=== PATIENT | female | born 1980 | race Caucasian/White ===

== ENCOUNTER 2018-03-28 12:05 | Emergency (ER) | payer OTHER ==
[2018-03-28] MEDS ORDERED: NA CHLORIDE 0.9% 1,000 ML ONE (13:57)
[2018-03-28] MEDS ORDERED: FAMOTIDINE 20 MG/2 ML VIAL IV ONE (13:57)
[2018-03-28 14:20] LABS: Absolute Lymphocytes (CBC) 2.2 K/uL (0.7-4.9); Absolute Monocytes 0.9 K/uL (0.1-1.3); Basophils % 0.7 % (0-1.3); Eosinophils % 1.5 % (0-4.4); Hematocrit 44.4 % (36.0-45.0); Lymphocytes % 17.8 % (15.3-44.8); MCH 28.4 pg (27.0-35.0); MCV 83.1 fL (80-100); MPV 9.8 fL (7.6-11.3); Monocytes % 7.3 % (3.3-12.3); RBC Red Blood Cell Count 5.34 M/uL (3.86-4.86)
[2018-03-28 14:25] LABS: Protime INR 0.9
[2018-03-28 14:30] LABS: ALT/SGPT 23 U/L (12-78); AST/SGOT 17 U/L (15-37); Albumin 3.7 g/dL (3.4-5.0); Alkaline Phosphatase 82 U/L (45-117); BUN Blood Urea Nitrogen 7 mg/dL (7-18); Bicarbonate 25 mmol/L (21-32); Bilirubin Direct 0.1 mg/dL (0-0.2); Bilirubin Total 0.4 mg/dL (0.2-1.0); CKMB Creatine Kinase MB < 1.0 ng/mL (0.3-3.6); Creatine Phosphokinase 56 U/L (26-192); Glucose Level 279 mg/dL (74-106); Lipase 156 U/L (73-393); Magnesium 2.2 mg/dL (1.8-2.4); NT PRO-BNP 150 pg/mL (<125); Protein, Total 7.7 g/dL (6.4-8.2); Sodium Level 138 mmol/L (136-145)
--- NOTE | 2018-03-28 14:44 | RAD REPORT ---
EXAM DESCRIPTION: RAD - Chest Single View - 03/28/2018 2:35 pm CLINICAL HISTORY: ABDOMINAL DISTENTION Chest pain. COMPARISON: No comparisons FINDINGS: Portable technique limits examination quality. The lungs are grossly clear. The heart is normal in size. No displaced fractures. IMPRESSION: No acute intrathoracic process suspected.
--- NOTE | 2018-03-28 15:06 | RAD REPORT ---
EXAM DESCRIPTION: US - Abdomen Exam Limited - 03/28/2018 2:55 pm CLINICAL HISTORY: ABD PAIN COMPARISON: No comparisons FINDINGS: The gallbladder demonstrates no gallstones. No pericholecystic fluid or gallbladder wall t hickening. The common bile duct is normal measuring 4 mm. The liver demonstrates no findings of intrahepatic biliary dilatation. IMPRESSION: Unremarkable examination.
[2018-03-28 15:17] LABS: Urine Blood NEGATIVE (NEG); Urine Glucose 2+ (NEG); Urine Protein TRACE (NEG); Urine Specific Gravity >1.030 (1.005-1.030)
--- NOTE | 2018-03-28 15:42 | RAD REPORT ---
EXAM DESCRIPTION: CTAbdomen Pelvis W Contrast - 03/28/2018 3:31 pm CLINICAL HISTORY: Abdominal pain. ABD PAIN COMPARISON: No comparisons TECHNIQUE: Biphasic CT imaging of the abdomen and pelvis was performed with 100 ml non-ionic IV cont rast. All CT scans are performed using dose optimization technique as appropriate and may include automated exposure control or mA/KV adjustment according to patient size. FINDINGS: The lung bases are clear.Gastric banding is expected location at the esophagogastric junct ion. Mild diffuse fatty liver. No focal liver lesion or biliary dilatation. The spleen, pancreas, adrenal glands and kidneys are within normal limits. No bowel obstruction, free air, free fluid or abscess. Scattered colonic diverticulosis. The appendix is normal. No evidence of significant lymphadenopathy. No suspicious bony findings. IMPRESSION: No acute intra-abdominal or pelvic finding.
--- NOTE | 2018-03-28 15:48 | EDPHYS ---
Physician Documentation [facility] Name: Elidia Sandoval Age: 37 yrs Sex: Female : 1980 Arrival Date: 03/28/2018 Time: 12:09 Bed 16 Private MD: out of town, doctor ED Physician Davian Chapman HPI: 03/28 13:49 This 37 yrs old Female presents to ER via Ambulatory with complaints of vu Abdominal Pain. 13:49 The patient presents with abdominal pain in the epigastric area, in the upper abdomen. vu Onset: The symptoms/episode began/occurred just prior to arrival. The symptoms radiate to back. Associated signs and symptoms: Pertinent positives: nausea and vomiting, diarrhea. The symptoms are described as constant, crampy, sharp. Modifying factors: The symptoms are alleviated by nothing, the symptoms are aggravated by movement. Severity of pain: At its worst the pain was moderate in the emergency department the pain has improved mildly. The patient has not experienced similar symptoms in the past. 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 - Social history:: Smoking status: Patient/guardian denies using tobacco, Patient/guardian denies using alcohol, street drugs. - Ebola Screening: : Patient negative for fever greater than or equal to 101.5 degrees Fahrenheit, and additional compatible Ebola Virus Disease symptoms Patient denies exposure to infectious person Patient denies travel to an Ebola-affected area in the 21 days before illness onset No symptoms or risks identified at this time. - Family history:: not pertinent. ROS: 13:49 Constitutional: Negative for fever, chills, and weight loss, Eyes: Negative for injury, vu pain, redness, and discharge, ENT: Negative for injury, pain, and discharge, Neck: Negative for injury, pain, and swelling, Cardiovascular: Negative for chest pain, palpitations, and edema, Respiratory: Negative for shortness of breath, cough, wheezing, and pleuritic chest pain, Back: Negative for injury and pain, : Negative for injury, bleeding, discharge, and swelling, MS/Extremity: Negative for injury and deformity, Skin: Negative for injury, rash, and discoloration, Neuro: Negative for headache, weakness, numbness, tingling, and seizure, Psych: Negative for depression, anxiety, suicide ideation, homicidal ideation, and hallucinations, Allergy/Immunology: Negative for hives, rash, and allergies, Endocrine: Negative for neck swelling, polydipsia, polyuria, polyphagia, and marked weight changes, Hematologic/Lymphatic: Negative for swollen nodes, abnormal bleeding, and unusual bruising. 13:49 Abdomen/GI: Positive for abdominal pain, nausea and vomiting, diarrhea. Exam: 13:49 Constitutional: This is a well developed, well nourished patient who is awake, alert, vu and in no acute distress. Head/Face: Normocephalic, atraumatic. Eyes: Pupils equal round and reactive to light, extra-ocular motions intact. Lids and lashes normal. Conjunctiva and sclera are non-icteric and not injected. Cornea within normal limits. Periorbital areas with no swelling, redness, or edema. ENT: Nares patent. No nasal discharge, no septal abnormalities noted. Tympanic membranes are normal and external auditory canals are clear. Oropharynx with no redness, swelling, or masses, exudates, or evidence of obstruction, uvula midline. Mucous membranes moist. Neck: Trachea midline, no thyromegaly or masses palpated, and no cervical lymphadenopathy. Supple, full range of motion without nuchal rigidity, or vertebral point tenderness. No Meningismus. Chest/axilla: Normal chest wall appearance and motion. Nontender with no deformity. No lesions are appreciated. Cardiovascular: Regular rate and rhythm with a normal S1 and S2. No gallops, murmurs, or rubs. Normal PMI, no JVD. No pulse deficits. Respiratory: Lungs have equal breath sounds bilaterally, clear to auscultation and percussion. No rales, rhonchi or wheezes noted. No increased work of breathing, no retractions or nasal flaring. Back: No spinal tenderness. No costovertebral tenderness. Full range of motion. Skin: Warm, dry with normal turgor. Normal color with no rashes, no lesions, and no evidence of cellulitis. MS/ Extremity: Pulses equal, no cyanosis. Neurovascular intact. Full, normal range of motion. Neuro: Awake and alert, GCS 15, oriented to person, place, time, and situation. Cranial nerves II-XII grossly intact. Motor strength 5/5 in all extremities. Sensory grossly intact. Cerebellar exam normal. Normal gait. Psych: Awake, alert, with orientation to person, place and time. Behavior, mood, and affect are within normal limits. 13:49 Abdomen/GI: Inspection: distension, Bowel sounds: normal, Palpation: mild abdominal tenderness, moderate abdominal tenderness, in the epigastric area, right upper quadrant and left upper quadrant, Liver: no appreciated palpable abnormalities, Hernia: not appreciated. Vital Signs: 12:19 BP 132 / 88; Pulse 92; Resp 20; Temp 98.6(O); Pulse Ox 96% on R/A; Weight 107.05 kg; ch Height 5 ft. 8 in. (172.72 cm); Pain 9/10; 14:20 BP 119 / 88; Pulse 92; Resp 17; Pulse Ox 98% on R/A; 5 15:02 BP 127 / 79; Pulse 90; Resp 18; Pulse Ox 100% on R/A; hj 16:03 BP 128 / 80; Pulse 89; Resp 18; Pulse Ox 97% on R/A; hj 12:19 Body Mass Index 35.88 (107.05 kg, 172.72 cm) MDM: 12:56 Patient medically screened. [facility] 13:51 Data reviewed: vital signs, nurses notes, lab test result(s), EKG, radiologic studies, [facility] CT scan, plain films, ultrasound. 03/28 13:49 Order name: Basic Metabolic Panel; Complete Time: 14:51 [facility] 03/28 13:49 Order name: CBC with Diff; Complete Time: 14:51 [facility] 03/28 13:49 Order name: Ckmb; Complete Time: 14:51 [facility] 03/28 13:49 Order name: CPK; Complete Time: 14:51 [facility] 03/28 13:49 Order name: LFT's; Complete Time: 14:51 [facility] 03/28 13:49 Order name: Magnesium; Complete Time: 14:51 [facility] 03/28 13:49 Order name: NT PRO-BNP; Complete Time: 14:51 [facility] 03/28 13:49 Order name: PT-INR; Complete Time: 14:51 [facility] 03/28 13:49 Order name: Ptt, Activated; Complete Time: 14:51 [facility] 03/28 13:49 Order name: Troponin (emerg Dept Use Only); Complete Time: 14:51 [facility] 03/28 13:49 Order name: XRAY Chest (1 view); Complete Time: 14:51 [facility] 03/28 13:49 Order name: Lipase; Complete Time: 14:51 [facility] 03/28 15:09 Order name: Urine Dipstick--Ancillary (enter results); Complete Time: 15:21 03/28 15:09 Order name: Urine --Ancillary (enter results); Complete Time: 15:21 03/28 13:49 Order name: Urine Test (obtain specimen); Complete Time: 14:10 [facility] 03/28 13:49 Order name: EKG; Complete Time: 13:49 [facility] 03/28 13:49 Order name: Cardiac monitoring; Complete Time: 13:50 [facility] 03/28 13:49 Order name: EKG - Nurse/Tech; Complete Time: 14:10 [facility] 03/28 13:49 Order name: IV Saline Lock; Complete Time: 13:50 [facility] 03/28 13:49 Order name: Labs collected and sent; Complete Time: 14:10 [facility] 03/28 13:49 Order name: O2 Per Protocol; Complete Time: 13:50 [facility] 03/28 13:49 Order name: O2 Sat Monitoring; Complete Time: 13:50 [facility] 03/28 13:49 Order name: Urine Dipstick-Ancillary (obtain specimen); Complete Time: 14:10 [facility] 03/28 13:49 Order name: CT Abd/Pelvis - W/Contrast: lap band prot; Complete Time: 15:47 [facility] 03/28 13:49 Order name: US Abdomen Limited; Complete Time: 15:21 [facility] Administered Medications: 13:49 Drug: Pepcid 20 mg Route: IVP; Site: left forearm; hj 15:43 Follow up: Response: No adverse reaction 13:49 Drug: NS 0.9% 1000 ml Route: IV; Rate: 1 bolus; Site: left forearm; hj 15:43 Follow up: IV Status: Completed infusion hj Disposition: 03/28/18 15:47 Discharged to Home. Impression: Abdominal tenderness - hx of lap band, Vomiting, Diarrhea, unspecified, Obesity, unspecified, Hyperglycemia, unspecified. - Condition is Stable. - Discharge Instructions: Abdominal Pain, Adult, Food Choices to Help Relieve Diarrhea, Adult, Type 2 Diabetes Mellitus, Diagnosis, Adult, Diarrhea, Adult, Hyperglycemia, Nausea and Vomiting, Adult, Nausea and Vomiting, Adult, Hekq-qx-Exwf, Abdominal Pain, Adult, Wdei-ox-Jwli, Blood Glucose Monitoring, Adult, Diarrhea, Adult, Pgmh-bi-Ilox, Type 2 Diabetes Mellitus, Diagnosis, Adult, Bjwe-bl-Dwlq, Type 2 Diabetes Mellitus, Self Care, Adult, Type 2 Diabetes Mellitus, Self Care, Adult, Ofzm-be-Yknm. - Prescriptions for Pepcid 20 mg Oral Tablet - take 1 tablet by ORAL route every 12 hours for 10 days; 20 tablet. Zofran 4 mg Oral Tablet - take 1 tablet by ORAL route every 12 hours As needed; 20 tablet. - Medication Reconciliation Form, Thank You Letter, Antibiotic Education, Prescription Opioid Use form. - Follow up: Private Physician; When: 2 - 3 days; Reason: Recheck today's complaints, Continuance of care, Re-evaluation by your physician. Follow up: Nirmal Florentino MD; When: 2 - 3 days; Reason: Recheck today's complaints, Re-evaluation by your physician. - Problem is new. - Symptoms have improved. Signatures: Dispatcher [employer] EDCarie Medina, RN RN Davian Ramirez MD MD cha Joaquin, Henry, RN RN Corrections: (The following items were deleted from the chart) 15:48 15:47 03/28/2018 15:47 Discharged to Home. Impression: Abdominal tenderness - hx of lap vu band; Vomiting; Diarrhea, unspecified; Obesity, unspecified; Hyperglycemia, unspecified. Condition is Stable. Discharge Instructions: Abdominal Pain, Adult, Food Choices to Help Relieve Diarrhea, Adult, Diarrhea, Adult, Nausea and Vomiting, Adult, Nausea and Vomiting, Adult, Vxqb-qd-Vzhm, Abdominal Pain, Adult, Ofti-fc-Qcdq, Diarrhea, Adult, Tmnp-qo-Aenl, Type 2 Diabetes Mellitus, Diagnosis, Adult, Hyperglycemia, Blood Glucose Monitoring, Adult, Type 2 Diabetes Mellitus, Diagnosis, Adult, Bsxp-fl-Ppcd, Type 2 Diabetes Mellitus, Self Care, Adult, Type 2 Diabetes Mellitus, Self Care, Adult, Tobx-dj-Dybb. Prescriptions for Pepcid 20 mg Oral Tablet - take 1 tablet by ORAL route every 12 hours for 10 days; 20 tablet. and Forms are Medication Reconciliation Form, Thank You Letter, Antibiotic Education, Prescription Opioid Use. Follow up: Private Physician; When: 2 - 3 days; Reason: Recheck today's complaints, Continuance of care, Re-evaluation by your physician. Problem is new. Symptoms have improved. [facility] 16:04 15:48 03/28/2018 15:47 Discharged to Home. Impression: Abdominal tenderness - hx of lap hj band; Vomiting; Diarrhea, unspecified; Obesity, unspecified; Hyperglycemia, unspecified. Condition is Stable. Discharge Instructions: Abdominal Pain, Adult, Food Choices to Help Relieve Diarrhea, Adult, Diarrhea, Adult, Nausea and Vomiting, Adult, Nausea and Vomiting, Adult, Vuar-lx-Tnmi, Abdominal Pain, Adult, Mmhr-xp-Wapa, Diarrhea, Adult, Lcyz-ac-Lwgw, Type 2 Diabetes Mellitus, Diagnosis, Adult, Hyperglycemia, Blood Glucose Monitoring, Adult, Type 2 Diabetes Mellitus, Diagnosis, Adult, Xbez-al-Jjxw, Type 2 Diabetes Mellitus, Self Care, Adult, Type 2 Diabetes Mellitus, Self Care, Adult, Nqwq-ou-Wibz. Prescriptions for Pepcid 20 mg Oral Tablet - take 1 tablet by ORAL route every 12 hours for 10 days; 20 tablet. and Forms are Medication Reconciliation Form, Thank You Letter, Antibiotic Education, Prescription Opioid Use. Follow up: Private Physician; When: 2 - 3 days; Reason: Recheck today's complaints, Continuance of care, Re-evaluation by your physician. Follow up: Nirmal Florentino; When: 2 - 3 days; Reason: Recheck today's complaints, Re-evaluation by your physician. Problem is new. Symptoms have improved. [facility]
--- NOTE | 2018-03-28 15:48 | ER ---
Nurse's Notes [facility] Name: Elidia Sandoval Age: 37 yrs Sex: Female : 1980 Arrival Date: 03/28/2018 Time: 12:09 Bed 16 Private MD: out of town, doctor Diagnosis: Abdominal tenderness-hx of lap band;Vomiting;Diarrhea, unspecified;Obesity, unspecified;Hyperglycemia, unspecified Presentation: 03/28 12:18 Presenting complaint: Patient states: I have a lap band. at 1030 I abruptly got pain in ch my stomach, upper area first now all over, started dry heaving, and I have had diarrhea since, several times. Transition of care: patient was not received from another setting of care. Onset of symptoms was March 28, 2018 at 10:30. Risk Assessment: Do you want to hurt yourself or someone else? Patient reports no desire to harm self or others. Initial Sepsis Screen: Does the patient meet any 2 criteria? No. Patient's initial sepsis screen is negative. Does the patient have a suspected source of infection? No. Patient's initial sepsis screen is negative. Care prior to arrival: None. 12:18 Method Of Arrival: Ambulatory 12:18 Acuity: FAITH 3 Triage Assessment: 12:19 General: Appears in no apparent distress. comfortable, Behavior is calm, cooperative, ch appropriate for age. Pain: Complains of pain in abdomen. GI: Reports lower abdominal pain, upper abdominal pain. 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 - Social history:: Smoking status: Patient/guardian denies using tobacco, Patient/guardian denies using alcohol, street drugs. - Ebola Screening: : Patient negative for fever greater than or equal to 101.5 degrees Fahrenheit, and additional compatible Ebola Virus Disease symptoms Patient denies exposure to infectious person Patient denies travel to an Ebola-affected area in the 21 days before illness onset No symptoms or risks identified at this time. - Family history:: not pertinent. Screenin:57 Abuse screen: Denies threats or abuse. Denies injuries from another. Nutritional hj screening: No deficits noted. Tuberculosis screening: No symptoms or risk factors identified. Fall Risk None identified. Assessment: 12:57 GI: Bowel sounds present X 4 quads. Abdomen is tender to palpation see triage for hj assessment;. 13:30 Reassessment: Patient and/or family updated on plan of care and expected duration. Pain hj level reassessed. Patient is alert, oriented x 3, equal unlabored respirations, skin warm/dry/pink. awaiting results and POC;. 14:18 Reassessment: finished drinking contrast, vascular technologist informed;. hj 15:00 Reassessment: back from CT;. hj 15:46 Reassessment: Patient and/or family updated on plan of care and expected duration. Pain hj level reassessed. Patient is alert, oriented x 3, equal unlabored respirations, skin warm/dry/pink. awaiting results and POC:. Vital Signs: 12:19 BP 132 / 88; Pulse 92; Resp 20; Temp 98.6(O); Pulse Ox 96% on R/A; Weight 107.05 kg; Height 5 ft. 8 in. (172.72 cm); Pain 9/10; 14:20 BP 119 / 88; Pulse 92; Resp 17; Pulse Ox 98% on R/A; mh5 15:02 BP 127 / 79; Pulse 90; Resp 18; Pulse Ox 100% on R/A; hj 16:03 BP 128 / 80; Pulse 89; Resp 18; Pulse Ox 97% on R/A; hj 12:19 Body Mass Index 35.88 (107.05 kg, 172.72 cm) ED Course: 12:09 Patient arrived in ED. mr 12:09 out of town, doctor is Private Physician. mr 12:18 Triage completed. 12:19 Arm band placed on left wrist. Patient placed in waiting room. 12:56 Davian Chapman MD is Attending Physician. [facility] 12:57 Servando Norwood RN is Primary Nurse. 12:58 Patient has correct armband on for positive identification. Placed in gown. Bed in low hj position. Call light in reach. Side rails up X 1. 14:10 Initial lab(s) drawn, by me, sent to lab. Inserted saline lock: 22 gauge in left hj forearm, using aseptic technique. 14:21 EKG done, by robot technician. reviewed by Davian Chapman MD. sm3 14:33 US Abdomen Limited In Process Unspecified. EDMS 14:34 X-ray completed. Portable x-ray completed in exam room. Patient tolerated procedure bb2 well. 14:34 XRAY Chest (1 view) In Process Unspecified. EDMS 15:[address] via wheelchair. cw1 15:30 CT Abd/Pelvis - W/Contrast: lap band prot In Process Unspecified. EDMS 15:48 Nirmal Florentino MD is Referral Physician. [facility] 16:02 No provider procedures requiring assistance completed. IV discontinued, intact, hj bleeding controlled, No redness/swelling at site. Pressure dressing applied. Administered Medications: 13:49 Drug: Pepcid 20 mg Route: IVP; Site: left forearm; hj 15:43 Follow up: Response: No adverse reaction 13:49 Drug: NS 0.9% 1000 ml Route: IV; Rate: 1 bolus; Site: left forearm; hj 15:43 Follow up: IV Status: Completed infusion hj Outcome: 15:47 Discharge ordered by . [facility] 16:02 Discharged to home ambulatory. 16:02 Condition: stable 16:02 Discharge instructions given to patient, Instructed on discharge instructions, follow up and referral plans. medication usage, Demonstrated understanding of instructions, follow-up care, medications, Prescriptions given X 2. 16:04 Patient left the ED. Signatures: Dispatcher [employer] EDMS Carie Juárez, RN Davian Paula ch, MD MD cha Rivera, Maria mr Gomez, Brigitte cw1 Servando Norwood RN RN hj Martinez, Maria 5 Yaneth Krishnan 2 Vicki Mccloud sm3 Corrections: (The following items were deleted from the chart) 14:57 12:57 GI: Bowel sounds present X 4 quads. Abdomen is tender to palpation [facility]
--- NOTE | 2018-03-29 16:20 | EKG ---
Test Date: 2018-03-28 Test Time: 14:01:06 Ditching Machine Operating Engineer: KAMARI MEASUREMENT RESULTS: Intervals: Rate: 65 MI: 128 QRSD: 90 QT: 414 QTc: 430 Hellier: P: 49 MI: 128 QRS: 34 T: 40 INTERPRETIVE STATEMENTS: Normal sinus rhythm Normal ECG No previous ECG available for comparison Electronically Signed On 03-29-18 16:15:00 CDT by Wilbur Khan
== END 2018-03-28 16:04 | disposition home or self-care (01) ==
LOC: ER 12:05
DX: R11.10 Vomiting, unspecified (principal); R19.7 Diarrhea, unspecified; R73.9 Hyperglycemia, unspecified; E66.9 Obesity, unspecified
CPT/HCPCS: 36415; 71045; 74177; 76705; 80048; 80076; 81003; 81025; 82550; 82553; 83690; 83735; 83880; 84484; 85025; 85610; 85730; 93005; 96361; 96374; 99284; J7030; Q9967

== ENCOUNTER 2018-10-05 14:24 | Emergency (ER) | payer BC, OTHER ==
--- OUTSIDE RECORDS SUMMARY | 2018-10-05 14:26 | XMS REPORT | Continuity of Care Document ---
:1980 Author Organization Interface Problems Problem Status Onset Date Classification Date Comments Source Reported Medications Medication Details Route Status Patient Ordering Order Source Instructions Provider Date Allergies, Adverse Reactions, Alerts Substance Category Reaction Severity Reaction Status Date Comments Source type Reported Immunizations Immunization Date Given Site Status Last Updated Comments Source Results Order Results Value Reference Date Interpretation Comments Source Name Range Vital Signs Vital Sign Value Date Comments Source Encounters Location Location Encounter Encounter Reason Attending ADM DC Status Source Details Type Number For Provider Date Date Visit Outpatient [id number] [facility] [id number] [facility] [place] [facility] [id number] [facility] [id number] [facility] [id number] [facility]03 [facility] [id number] [facility] [id number] [facility] [id number] JOAO 08/31 Active [facility] [place] Procedures Procedure Code Date Perfomer Comments Source
--- NOTE | 2018-10-05 17:22 | EDPHYS ---
Physician Documentation [facility] Name: Elidia Sandoval Age: 38 yrs Sex: Female : 1980 Arrival Date: 10/05/2018 Time: 14:28 Bed 10 Private MD: ED Physician Anil Banks HPI: 10/05 16:37 This 38 yrs old Female presents to ER via Ambulatory with complaints of Hand kav Injury. 16:41 The patient or guardian reports a contusion, pain. The complaints affect the left hand kav diffusely, right hand diffusely. Context: The problem was sustained at a [place]. Onset: The symptoms/episode began/occurred acutely, 2 day(s) ago. Modifying factors: The symptoms are alleviated by nothing, the symptoms are aggravated by movement. Associated signs and symptoms: The patient has no apparent associated signs or symptoms. Severity of symptoms: At their worst the symptoms were moderate, just prior to arrival. The patient has not experienced similar symptoms in the past. The patient has not recently seen a physician. Patient reports that she tripped and fell at the [place] and landed on bilateral outstretched hands. 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 - Social history:: Smoking status: Patient/guardian denies using tobacco. - Ebola Screening: : No symptoms or risks identified at this time. - Family history:: not pertinent. - Hospitalizations: : No recent hospitalization is reported. ROS: 16:43 Constitutional: Negative for fever, chills, and weight loss, Eyes: Negative for injury, kav pain, redness, and discharge, ENT: Negative for injury, pain, and discharge, Neck: Negative for injury, pain, and swelling, Cardiovascular: Negative for chest pain, palpitations, and edema, Respiratory: Negative for shortness of breath, cough, wheezing, and pleuritic chest pain, Abdomen/GI: Negative for abdominal pain, nausea, vomiting, diarrhea, and constipation, Back: Negative for injury and pain, : Negative for injury, bleeding, discharge, and swelling, Skin: Negative for injury, rash, and discoloration, Neuro: Negative for headache, weakness, numbness, tingling, and seizure, Psych: Negative for depression, anxiety, suicide ideation, homicidal ideation, and hallucinations, Allergy/Immunology: Negative for hives, rash, and allergies, Endocrine: Negative for neck swelling, polydipsia, polyuria, polyphagia, and marked weight changes, Hematologic/Lymphatic: Negative for swollen nodes, abnormal bleeding, and unusual bruising. 16:43 MS/extremity: Positive for contusion, pain, of the right hand and left hand. Exam: 16:43 Constitutional: This is a well developed, well nourished patient who is awake, alert, kav and in no acute distress. Head/Face: Normocephalic, atraumatic. Eyes: Pupils equal round and reactive to light, extra-ocular motions intact. Lids and lashes normal. Conjunctiva and sclera are non-icteric and not injected. Cornea within normal limits. Periorbital areas with no swelling, redness, or edema. ENT: Nares patent. No nasal discharge, no septal abnormalities noted. Tympanic membranes are normal and external auditory canals are clear. Oropharynx with no redness, swelling, or masses, exudates, or evidence of obstruction, uvula midline. Mucous membranes moist. Neck: Trachea midline, no thyromegaly or masses palpated, and no cervical lymphadenopathy. Supple, full range of motion without nuchal rigidity, or vertebral point tenderness. No Meningismus. Chest/axilla: Normal chest wall appearance and motion. Nontender with no deformity. No lesions are appreciated. Cardiovascular: Regular rate and rhythm with a normal S1 and S2. No gallops, murmurs, or rubs. Normal PMI, no JVD. No pulse deficits. Respiratory: Lungs have equal breath sounds bilaterally, clear to auscultation and percussion. No rales, rhonchi or wheezes noted. No increased work of breathing, no retractions or nasal flaring. Abdomen/GI: Soft, non-tender, with normal bowel sounds. No distension or tympany. No guarding or rebound. No evidence of tenderness throughout. Back: No spinal tenderness. No costovertebral tenderness. Full range of motion. Skin: Warm, dry with normal turgor. Normal color with no rashes, no lesions, and no evidence of cellulitis. Neuro: Awake and alert, GCS 15, oriented to person, place, time, and situation. Cranial nerves II-XII grossly intact. Motor strength 5/5 in all extremities. Sensory grossly intact. Cerebellar exam normal. Normal gait. Psych: Awake, alert, with orientation to person, place and time. Behavior, mood, and affect are within normal limits. 16:43 Musculoskeletal/extremity: Extremities: noted in the right hand and left hand: contusion, pain, ROM: full active range of motion, in the left hand, Circulation is intact in all extremities. Pulses: are normal with no appreciated deficits, Sensation intact. Compartment Syndrome exam of affected extremity: is normal. no numbness, no tingling, no sensation deficit, no palor, no weak pulses, Joints: All joints appear normal with full range of motion. Tendon exam: specific tendon testing normal through active and passive range of motion Vital Signs: 14:40 BP 144 / 87; Pulse 88; Resp 16; Temp 97.8; Pulse Ox 100% on R/A; Pain 6/10; hb MDM: 16:37 Medical screening is not applicable. kav 16:43 Differential diagnosis: dislocation, closed fracture, contusion. Data reviewed: vital kav signs, nurses notes, radiologic studies, plain films. Counseling: I had a detailed discussion with the patient and/or guardian regarding: the historical points, exam findings, and any diagnostic results supporting the discharge/admit diagnosis, radiology results. 10/05 14:41 Order name: Hand Left 3 View XRAY 10/05 17:17 Interpretation: No acute disease. kav 10/05 14:41 Order name: Hand Right 3 View XRAY 10/05 17:16 Interpretation: No acute disease. kav Administered Medications: No medications were administered Disposition: 10/06 07:00 Co-signature as Attending Physician, Anil Banks MD I agree with the assessment and kdr plan of care. Disposition: 10/05/18 17:16 Discharged to Home. Impression: Contusion of left hand, Contusion of right hand. - Condition is Stable. - Discharge Instructions: Hand Contusion, [id number]. - Prescriptions for Ibuprofen 800 mg Oral Tablet - take 1 tablet by ORAL route every 12 hours As needed take with food; 20 tablet. Tramadol 50 mg Oral Tablet - take 1 tablet by ORAL route every 8 hours as needed; 12 tablet. - Medication Reconciliation Form, Thank You Letter, Prescription Opioid Use form. - Follow up: Private Physician; When: 5 - 6 days; Reason: Recheck today's complaints, Continuance of care, Re-evaluation by your physician. - Problem is new. - Symptoms are unchanged. Signatures: Dispatcher [employer] EDMS Anil Banks MD MD kdr Vern, Katherine, PRANAV RODRIGUESP Katja Berg RN RN iw Donna Brar RN RN Corrections: (The following items were deleted from the chart) 10/05 17:27 17:16 10/05/2018 17:16 Discharged to Home. Impression: Contusion of left hand; iw Contusion of right hand. Condition is Stable. Discharge Instructions: Hand Contusion, [id number]. Prescriptions for Ibuprofen 800 mg Oral Tablet - take 1 tablet by ORAL route every 12 hours As needed take with food; 20 tablet, Tramadol 50 mg Oral Tablet - take 1 tablet by ORAL route every 8 hours as needed; 12 tablet. and Forms are Medication Reconciliation Form, Thank You Letter, Antibiotic Education, Prescription Opioid Use. Follow up: Private Physician; When: 5 - 6 days; Reason: Recheck today's complaints, Continuance of care, Re-evaluation by your physician. Problem is new. Symptoms are unchanged. kav
--- NOTE | 2018-10-05 17:22 | ER ---
Nurse's Notes [facility] Name: Elidia Sandoval Age: 38 yrs Sex: Female : 1980 Arrival Date: 10/05/2018 Time: 14:28 Bed 10 Private MD: Diagnosis: Contusion of left hand;Contusion of right hand Presentation: 10/05 14:39 Presenting complaint: Fell on outstretched hands 2 days ago, c/o pain in right palm, hb left index and middle fingers. Transition of care: patient was not received from another setting of care. Onset of symptoms was October 03, 2018. Risk Assessment: Do you want to hurt yourself or someone else? Patient reports no desire to harm self or others. Care prior to arrival: None. 14:39 Method Of Arrival: Ambulatory hb 14:39 Acuity: FAITH 4 hb 16:50 Initial Sepsis Screen: Does the patient meet any 2 criteria? No. Patient's initial iw sepsis screen is negative. Does the patient have a suspected source of infection? No. Patient's initial sepsis screen is negative. Triage Assessment: 16:50 General: Appears in no apparent distress. Behavior is calm, cooperative. Injury iw Description:. 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 - Social history:: Smoking status: Patient/guardian denies using tobacco. - Ebola Screening: : No symptoms or risks identified at this time. - Family history:: not pertinent. - Hospitalizations: : No recent hospitalization is reported. Screenin:25 Abuse screen: Denies threats or abuse. Denies injuries from another. Nutritional iw screening: No deficits noted. Tuberculosis screening: No symptoms or risk factors identified. Fall Risk None identified. Fall in past 12 months (25 points). Assessment: 16:50 General: Appears Behavior is calm. Pain: Complains of pain in left hand and right hand. iw Musculoskeletal: Range of motion: intact in all extremities. Vital Signs: 14:40 BP 144 / 87; Pulse 88; Resp 16; Temp 97.8; Pulse Ox 100% on R/A; Pain 6/10; hb ED Course: 14:28 Patient arrived in ED. rg4 14:40 Triage completed. hb 14:40 Arm band placed on. hb 14:42 X-ray ordered. hb 16:25 Patient has correct armband on for positive identification. iw 16:37 [facility]re [facility] kav 16:37 Anil Banks MD is Attending Physician. kav 16:49 X-ray completed. Portable x-ray completed in exam room. Patient tolerated procedure ls3 well. 16:51 Hand Left 3 View XRAY In Process Unspecified. EDMS 16:51 Hand Right 3 View XRAY In Process Unspecified. EDMS 17:26 No provider procedures requiring assistance completed. Patient did not have IV access iw during this emergency room visit. 17:27 Katja Askew, RN is Primary Nurse. iw Administered Medications: No medications were administered Outcome: 17:16 Discharge ordered by . kav 17:26 Discharged to home ambulatory. iw 17:26 Condition: good 17:26 Discharge instructions given to patient, Instructed on discharge instructions, follow up and referral plans. Demonstrated understanding of instructions, follow-up care, Prescriptions given X 2. 17:27 Patient left the ED. iw Signatures: Dispatcher [employer] EDLA Elidia Alatorre FNP PALLIATIVE SENIOR NPKatja Ayoub, RN KERRI iw Donna Brar RN RN Pily Cooper rg4 Evin Sherman ls3 Corrections: (The following items were deleted from the chart) 15:48 14:40 Arm band placed on hb hb 19:41 17:26 Discharge instructions given to patient, Instructed on discharge instructions, iw follow up and referral plans. Demonstrated understanding of instructions, follow-up care, iw
--- NOTE | 2018-10-05 17:31 | RAD REPORT ---
EXAM DESCRIPTION: RAD - Hand Right 3 View - 10/05/2018 4:51 pm CLINICAL HISTORY: Right hand pain status post injury FINDINGS: No fracture or dislocation is seen.
--- NOTE | 2018-10-05 17:35 | RAD REPORT ---
EXAM DESCRIPTION: RAD -Hand Left 3 View - 10/05/2018 4:50 pm CLINICAL HISTORY: Left hand pain status post injury FINDINGS: 1.5 millimeter bony density is present at the base of the second distal phalanx. This may represent an ossicle. Another consideration is that this represents an acute avulsion fracture. Clini aristeo correlation is needed see the patient has point tenderness in this region to suggest a fracture. No dislocation noted
== END 2018-10-05 17:27 | disposition home or self-care (01) ==
LOC: ER 14:24
DX: S60.222A Contusion of left hand, initial encounter (principal); S60.221A Contusion of right hand, initial encounter; M79.641 Pain in right hand; W19.XXXA Unspecified fall, initial encounter; Y93.9 Activity, unspecified; Y92.89 Other specified places as the place of occurrence of the external cause
CPT/HCPCS: 99283

== ENCOUNTER 2020-02-11 13:43 | Emergency (ER) | payer BC ==
[2020-02-11] MEDS ORDERED: LIDOCAINE 1% MPF 5 ML VIAL ONE (16:13)
[2020-02-11] MEDS ORDERED: BUPIVACAINE 0.5% PF 10 ML VIAL ONE (16:14)
[2020-02-11] MEDS ORDERED: HYDROCODONE/APAP 10/325 TAB ONE (16:14)
[2020-02-11] MEDS ORDERED: TETANUS & DIPHTHERIA TOX,ADULT 0.5 ML VIAL ONE (16:14)
--- NOTE | 2020-02-11 17:16 | ER ---
Nurse's Notes [facility] Name: Elidia Sandoval Age: 39 yrs Sex: Female : 1980 Arrival Date: 02/11/2020 Time: 13:58 Bed 13 Private MD: Diagnosis: Cutaneous abscess of groin Presentation: 02/10 14:08 Chief complaint: Patient states: Boil to left vaginal area for 3 days getting ll1 progressively worse. Fever at home. Coronavirus screen: Proceed with normal triage. Patient denies a cough. Patient denies shortness of breath or difficulty breathing. Patient denies measured and/or subjective temperature greater than 100.4F prior to today's visit. Patient denies travel on a cruise ship or to a country the [facility] currently lists as an affected area. Patient denies contact with known and/or suspected case of COVID-19. Ebola Screen: Patient denies travel to an Ebola-affected area in the 21 days before illness onset. Initial Sepsis Screen: Does the patient meet any 2 criteria? HR > 90 bpm. No. Patient's initial sepsis screen is negative. Does the patient have a suspected source of infection? Yes: Skin breakdown/wound. Risk Assessment: Do you want to hurt yourself or someone else? Patient reports no desire to harm self or others. Onset of symptoms was February 08, 2020. 14:08 Method Of Arrival: Ambulatory ll1 14:08 Acuity: FAITH 3 ll1 Historical: - Allergies: 14:08 No Known Allergies; ll1 - PMHx: 16:15 None; aa5 - PSHx: 14:08 lapband; back implant- discectomy 5 yrs ago; ll1 - Immunization history:: Flu vaccine is not up to date. - Social history:: Smoking status: Patient denies any tobacco usage or history of. Patient/guardian denies using alcohol, street drugs, tobacco products. Screenin:30 Abuse screen: Denies threats or abuse. Nutritional screening: No deficits noted. aa5 Tuberculosis screening: No symptoms or risk factors identified. Fall Risk None identified. Assessment: 15:30 General: Appears uncomfortable, Behavior is calm, cooperative. Pain: Complains of pain aa5 in left labia Pain currently is 8 out of 10 on a pain scale. Quality of pain is described as tender, Is continuous. Neuro: Level of Consciousness is awake, alert, obeys commands, Oriented to person, place, time, situation. Cardiovascular: Patient's skin is warm and dry. Respiratory: Airway is patent Respiratory effort is even, unlabored, Respiratory pattern is regular, symmetrical. GI: No signs and/or symptoms were reported involving the gastrointestinal system. : No signs and/or symptoms were reported regarding the genitourinary system. EENT: No signs and/or symptoms were reported regarding the EENT system. Derm: Skin is pink, warm \T\ dry. Abscess located on left labia. Musculoskeletal: Range of motion: intact in all extremities. 17:00 Reassessment: Patient is alert, oriented x 3, equal unlabored respirations, skin aa5 warm/dry/pink. 18:00 Reassessment: Patient is alert, oriented x 3, equal unlabored respirations, skin aa5 warm/dry/pink. Vital Signs: 14:08 BP 142 / 82; Pulse 104; Resp 18; Temp 98.7; Pulse Ox 99% ; Pain 8/10; ll1 ED Course: 13:58 Patient arrived in ED. fj1 14:10 Triage completed. ll1 14:10 Arm band placed on Patient notified of wait time. ll1 15:02 Rudy Patterson NP is PHCP. pm1 15:02 Davian Chapman MD is Attending Physician. pm1 15:04 Selena Alvarado, KERRI is Primary Nurse. aa5 15:27 Assist provider with I \T\ D: Set up I\T\D tray. CHAPERONED PROVIDER TO EXAMINE PATIENT. 5 15:30 Patient has correct armband on for positive identification. Placed in gown. Bed in low mh5 position. Call light in reach. Side rails up X 1. Warm blanket given. Pillow given. Pulse ox on. NIBP on. 17:00 Assist provider with I \T\ D: of an abscess on left labia Performed by Rudy Patterson NP aa5 Culture sent to lab. Wound packed. iodoform gauze, Patient tolerated well. 18:05 Patient did not have IV access during this emergency room visit. aa5 Administered Medications: 16:15 Drug: Tetanus-Diphtheria Toxoid Adult 0.5 ml {Injection Machine Operator: [employer]. Exp: aa5 09/14/2021. Lot #: [id number]. } Route: IM; Site: left deltoid; 17:00 Follow up: Response: No adverse reaction aa5 16:15 Drug: [place] 10 mg-325 mg 1 tabs Route: PO; aa5 17:00 Follow up: Response: No adverse reaction aa5 17:00 Drug: Lidocaine (1 %) 5 ml {Note: administered by FISHERY BIOLOGIST .} Volume: 5 ml; Route: aa5 Infiltration; 17:00 Drug: Marcaine (0.5 %) 10 ml {Note: administered by FISHERY BIOLOGIST .} Volume: 10 ml; Route: aa5 Infiltration; Outcome: 17:16 Discharge ordered by MD. pm1 18:00 Discharged to home ambulatory. aa5 18:00 Condition: improved 18:00 Discharge instructions given to patient, Instructed on discharge instructions, follow up and referral plans. medication usage, Demonstrated understanding of instructions, follow-up care, medications, Prescriptions given X 2. 18:05 Patient left the ED. aa5 Addendum: 02/15/2020 11:27 Addendum: Culture Results: Positive wound culture. Bacteria is resistant to, has s s intermediate sensitivity, or is not tested against prescribed antibiotics. Report given to BENNETT for further evaluation and then to imaging technician for follow up with patient. Phone call Attempt #1 spoke with patient who reports she is doing much better and the wound seems to be healing nicely. 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 Signatures: Selena Alvarado RN RN aa5 Nickie Vargas RN RN ss Marinas, Patrick, NP FISHERY BIOLOGIST pm1 Benita Queen Frank 1 Abrahan Rojas RN RN ll1 Corrections: (The following items were deleted from the chart) 02/10 19:29 18:10 Patient did not have IV access during this emergency room visit. aa5 aa5
--- NOTE | 2020-02-11 17:16 | EDPHYS ---
Physician Documentation [facility] Name: Elidia Sandoval Age: 39 yrs Sex: Female : 1980 Arrival Date: 02/11/2020 Time: 13:58 Bed 13 Private MD: ED Physician Davian Chapman HPI: 02/10 16:04 This 39 yrs old Female presents to ER via Ambulatory with complaints of Boil. pm1 16:04 The patient presents with an abscess of the groin. Description: draining, raised. pm1 Onset: The symptoms/episode began/occurred 3 day(s) ago. Possible cause(s): possibly shaving. Associated signs and symptoms: Pertinent positives: drainage. Modifying factors: the symptoms are alleviated by warm soaks, squeezing the lesion and expressing the contents, the symptoms are aggravated by sitting, touching. Severity of symptoms: in the emergency department the symptoms have improved. The patient has not experienced similar symptoms in the past. The patient has not recently seen a physician, Has investigative assistant surgeon that she has seen in the past. Historical: - Allergies: 14:08 No Known Allergies; ll1 - PMHx: 16:15 None; aa5 - PSHx: 14:08 lapband; back implant- discectomy 5 yrs ago; ll1 - Immunization history:: Flu vaccine is not up to date. - Social history:: Smoking status: Patient denies any tobacco usage or history of. Patient/guardian denies using alcohol, street drugs, tobacco products. ROS: 16:06 Constitutional: Negative for fever, chills, and weight loss, Cardiovascular: Negative pm1 for chest pain, palpitations, and edema, Respiratory: Negative for shortness of breath, cough, wheezing, and pleuritic chest pain, Abdomen/GI: Negative for abdominal pain, nausea, vomiting, diarrhea, and constipation, Back: Negative for injury and pain, MS/Extremity: Negative for injury and deformity. 16:06 Skin: Positive for abscess, of the groin, Negative for cellulitis. 16:06 All other systems are negative. Exam: 16:06 Constitutional: This is a well developed, well nourished patient who is awake, alert, pm1 and in no acute distress. Head/Face: Normocephalic, atraumatic. 16:06 Skin: Warm, dry with normal turgor. Normal color with no rashes, no lesions, and no evidence of cellulitis. MS/ Extremity: Pulses equal, no cyanosis. Neurovascular intact. Full, normal range of motion. 16:06 Cardiovascular: Exam negative for acute changes, Rate: normal, Rhythm: regular, Pulses: no pulse deficits are appreciated. 16:06 Respiratory: Exam negative for acute changes, respiratory distress, shortness of breath. 16:06 Abdomen/GI: Exam negative for acute changes, Inspection: abdomen appears normal, Palpation: abdomen is soft and non-tender, in all quadrants. 16:06 : Pelvic Exam: External exam: no appreciated Bartholin's cyst, cutaneous abscess with drainage, no surrounding cellulitis, to lower left labia majora, Lucie utility technician present as curator of manuscripts. 16:06 Neuro: Exam negative for acute changes, Orientation: is normal, Motor: is normal, moves all fours. Vital Signs: 14:08 BP 142 / 82; Pulse 104; Resp 18; Temp 98.7; Pulse Ox 99% ; Pain 8/10; ll1 Procedures: 17:18 I \T\ D: Incision and drainage was performed for an abscess of the left groin Prepped pm1 with Betadine, Anesthetized with lidocaine and marcaine. Incised with #11 blade. Drained small amount purulent fluid. sebaceous sac removed Cultures obtained. Abscess cavity explored. Packed with iodoform gauze, Dressing: sterile 4x4 gauze, the patient tolerated the procedure well. MDM: 15:21 Patient medically screened. pm1 17:14 Data reviewed: vital signs. Data interpreted: Pulse oximetry: on room air is 99 %. pm1 Interpretation: normal. Counseling: I had a detailed discussion with the patient and/or guardian regarding: the historical points, exam findings, and any diagnostic results supporting the discharge/admit diagnosis, the need for outpatient follow up, an OB/Gyne specialist, to return to the emergency department if symptoms worsen or persist or if there are any questions or concerns that arise at home. 02/10 17:18 Order name: Wound Culture pm1 02/10 15:22 Order name: Incision \T\ Drainage Setup; Complete Time: 15:27 pm1 Administered Medications: 16:15 Drug: Tetanus-Diphtheria Toxoid Adult 0.5 ml {Marketing Communications Leader: [employer]. Exp: aa5 09/14/2021. Lot #: [id number]. } Route: IM; Site: left deltoid; 17:00 Follow up: Response: No adverse reaction 16:15 Drug: [place] 10 mg-325 mg 1 tabs Route: PO; aa5 17:00 Follow up: Response: No adverse reaction aa5 17:00 Drug: Lidocaine (1 %) 5 ml {Note: administered by STAFF ANESTHETIST .} Volume: 5 ml; Route: aa5 Infiltration; 17:00 Drug: Marcaine (0.5 %) 10 ml {Note: administered by STAFF ANESTHETIST .} Volume: 10 ml; Route: aa5 Infiltration; Disposition: 02/11 05:47 Co-signature as Attending Physician, Davian Chapman MD I agree with the assessment and vu plan of care. Disposition: 02/11/20 17:16 Discharged to Home. Impression: Cutaneous abscess of groin. - Condition is Stable. - Discharge Instructions: Skin Abscess, Incision and Drainage. - Prescriptions for Tylenol- Codeine #3 300-30 mg Oral Tablet - take 2 tablets by ORAL route every 6 hours As needed; 20 tablet. Doxycycline Hyclate 100 mg Oral Tablet - take 1 tablet by ORAL route every 12 hours; 20 tablet. - Medication Reconciliation Form, Thank You Letter, Antibiotic Education, Prescription Opioid Use form. - Follow up: Emergency Department; When: As needed; Reason: Worsening of condition. Follow up: Private Physician; When: 2 - 3 days; Reason: Recheck today's complaints, Continuance of care, Re-evaluation by your physician. - Problem is new. - Symptoms have improved. Signatures: Dispatcher [employer] Davian Arnett MD MD cha Calderon, Audri, RN RN aa5 Rudy Patterson NP STAFF ANESTHETIST pm1 Abrahan Rojas RN RN ll1 Corrections: (The following items were deleted from the chart) 02/10 18:05 17:16 02/11/2020 17:16 Discharged to Home. Impression: Cutaneous abscess of groin. aa5 Condition is Stable. Forms are Medication Reconciliation Form, Thank You Letter, Antibiotic Education, Prescription Opioid Use. Follow up: Emergency Department; When: As needed; Reason: Worsening of condition. Follow up: Private Physician; When: 2 - 3 days; Reason: Recheck today's complaints, Continuance of care, Re-evaluation by your physician. Problem is new. Symptoms have improved. pm1
[2020-02-11 18:32] VITALS: BP 142/82; TEMP 98.7; O2SAT 99
== END 2020-02-11 18:05 | disposition home or self-care (01) ==
LOC: ER 13:43
PROC: 0J9C0ZZ Drainage of Pelvic Region Subcutaneous Tissue and Fascia, Open Approach (ICD-10-PCS; principal; 2020-02-11)
DX: L02.214 Cutaneous abscess of groin (principal); Z23 Encounter for immunization
CPT/HCPCS: 87070; 87077; 87186; 87205; 90471; 90714; 99284

== ENCOUNTER 2023-02-10 16:36 | Emergency (ER) | payer BC ==
--- OUTSIDE RECORDS SUMMARY | 2023-02-10 16:41 | XMS REPORT | Continuity of Care Document ---
:1980 Author Organization [facility] t Address [address] [place] [address] [place] [address] Care Team Providers Name Role Phone Christophe Dsouza Attending Clinician Unavailable Stoney Mejias Attending Clinician Unavailable GC_GCFRWD_Vasquez_E Attending Clinician Unavailable Physician, No Primary or Family Admitting Clinician Unavaila Melyssa Mitchell Admitting Clinician Unavailable GC_GCFRWD_Vasquez_Skyler Admitting Clinician Unavailable Christophe Dsouza Admitting Clinician Unavailable Payers Payer Name Policy Type Policy Number Effective Date Expiration Date S buff[place] [id number] 2018 (PPO) 00:00:00 [place] OF [place] [facility] [id number] 2018 [facility] 00:00:00 COMMERCIAL [id number] NON-CONTRACT 00:00:00 GENERIC AETNA PPO II [id number] 2018 00:00:00 Problems This patient has no known problems. Allergies, Adverse Reactions, Alerts Allergy Allergy Status Severity Reaction(s) Onset Inactive Treating Comm ents Source Name Type Date Date Clinician alexis FA Active SV ANAPHYLAXIS [facility] 7-07 Clear 00:00: Fraser 00 [facility] melon FA Active SV ANAPHYLAXIS [facility] 7-07 Clear 00:00: Fraser 00 [facility] No Known DA Active U [facility] Allergie 6-24 Clear s 00:00: [facility] cucumber FA Active SV ANAPHYLAXIS [facility] 6-24 Clear 00:00: [facility] melon FA Active SV ANAPHYLAXIS [facility] 6-24 Clear 00:00: [facility] CANTALOU Food Active SOB 2015-1 [facility] PE 2-14 ity of 00:00: [place] [id number] [facility] No Known DA Active U 2007-08 [facility] Contrast 0-12 Clear Allergie 00:00: Fraser s [facility] No Known DA Active U 2007-08 [facility] Drug 0-12 Clear Allergie 00:00: Fraser s [facility] No Known DA Active U 2007-08 [facility] Food 0-12 Clear Allergie 00:00: Fraser s [facility] No Known DA Active U 2007-08 [facility] Other 0-12 Clear Allergie 00:00: Fraser s [facility] Medications This patient has no known medications. Procedures Procedure Date / Time Performed Performing Clinician [facility] skyler [id number] 2022-01-26 00:00:00 [facility] [id number] 2022-01-26 00:00:00 [facility] [id number] 2022-01-26 00:00:00 [facility] [id number] 2022-01-26 00:00:00 [facility] Encounters Start End Encounter Admission Attending Care Care Encounter Source Date/Time Date/Time Type Type Clinicians Facility Department ID 2021-10-30 Inpatient EL Du, Christophe HCACL DIAB [id number] [facility] 04:30:00 06 [facility] 2021-07-17 Inpatient EL Du, Christophe HCACL DIAB [id number] [facility] 03:41:00 30 [facility] 2023-06-03 2023-06-03 Outpatient MHIE VANE [id number] [facility] 08:15:00 08:15:00 22 yvan EllreMize 2023-06-03 2023-06-03 Outpatient VANE DUNLAP [id number] [facility] 08:15:00 08:15:00 22 yvan Dick 2023-02-07 2023-02-07 Outpatient MHIE MHIE [id number] [facility] 11:00:00 11:00:00 23 yvan Kapil 2023-02-04 2023-02-04 Emergency EM Mejias, HCACL AERS [id number] [facility] 21:29:00 22:25:00 [address]Shauris [address] [facility] 2023-01-22 2023-01-22 Outpatient GC_GCFRWD_M PRIV PRIV [id number] [facility] 00:00:00 00:00:00 itchell_E [id number] [facility] 2022-11-30 2022-11-30 Outpatient MHIE MHIE [id number] [facility] 08:45:00 08:45:00 21 yvan Dick 2022-11-30 2022-11-30 Outpatient MHIE MHIE [id number] [facility] 08:45:00 08:45:00 21 yvan Dick 2022-09-30 2022-09-30 Outpatient MHIE MHIE [id number] [facility] 16:15:00 16:15:00 20 yvan Dick 2022-09-30 2022-09-30 Outpatient MHIE MHIE [id number] [facility] 16:15:00 16:15:00 20 yvan EllerMize 2022-01-26 2022-01-27 Inpatient EL Du, Christophe HCACL DAYS [id number] [facility] 05:28:00 15:31:00 76 [facility] 2022-01-26 2022-01-27 Inpatient EL Du, Christophe HCACL DAYS [id number] [facility] 05:28:00 15:31:00 [id number] [facility] 2021-10-13 2021-10-29 Inpatient EL Du, Christophe HCACL DIAB [id number] [facility] 13:20:00 00:00:00 00 [facility] 2021-09-23 2021-09-23 Outpatient MHIE MHIE [id number] [facility] 13:00:00 13:00:00 19 yvan Dick 2021-09-23 2021-09-23 Outpatient MHIE MHIE [id number] [facility] 13:00:00 13:00:00 19 yvan Dick 2021-05-29 2021-05-29 Outpatient MHIE MHIE [id number] [facility] 09:15:00 09:15:00 18 yvan EllerMize 2021-05-29 2021-05-29 Outpatient MHIE MHIE [id number] [facility] 09:15:00 09:15:00 18 yvan EllerKapil 2021-05-28 2021-05-28 Outpatient MHIE MHIE [id number] [facility] 14:30:00 14:30:00 17 yvan Kapil 2021-05-28 2021-05-28 Outpatient MHIE MHIE [id number] [facility] 14:30:00 14:30:00 17 yvan Kapil 2021-04-07 2021-04-07 Outpatient MHIE MHIE [id number] [facility] 08:15:00 08:15:00 16 yvan Kapil 2021-04-07 2021-04-07 Outpatient MHIE MHIE [id number] [facility] 08:15:00 08:15:00 16 yvan Dick 2020-11-21 2020-11-21 Outpatient MHIE MHIE [id number] [facility] 09:30:00 09:30:00 15 yvan Dick 2020-11-21 2020-11-21 Outpatient MHIE MHIE [id number] [facility] 09:30:00 09:30:00 15 yvan Dick 2020-11-20 2020-11-20 Outpatient MHIE MHIE [id number] [facility] 13:30:00 13:30:00 14 yvan Dick 2020-11-20 2020-11-20 Outpatient MHIE MHIE [id number] [facility] 13:30:00 13:30:00 14 yvan Dick 2020-06-23 2020-06-23 Outpatient MHIE MHIE [id number] [facility] 09:15:00 09:15:00 12 yvan Dick 2020-06-23 2020-06-23 Outpatient MHIE MHIE [id number] [facility] 09:15:00 09:15:00 13 yvan Dick 2020-06-23 2020-06-23 Outpatient MHIE MHIE [id number] [facility] 09:15:00 09:15:00 12 yvan Dick 2020-06-23 2020-06-23 Outpatient MHIE MHIE [id number] [facility] 09:15:00 09:15:00 13 l Kapil 2020-06-18 2020-06-18 Outpatient R [facility] [id number] [facility] 15:40:00 15:40:00 [facility] 2020-04-24 2020-04-24 Outpatient R [facility] [id number] Univers 15:20:00 15:20:00 [facility] 2020-02-14 2020-02-14 Outpatient MHIE MHIE [id number] [facility]oria 08:00:00 08:00:00 11 l Kapil 2020-02-14 2020-02-14 Outpatient MHIE MHIE [id number] [facility] 08:00:00 08:00:00 11 l Kapil 2019-07-19 2019-07-19 Outpatient MHIE MHIE [id number] [facility] 09:15:00 09:15:00 10 l Mize 2019-07-19 2019-07-19 Outpatient MHIE MHIE [id number] [facility]oria 09:15:00 09:15:00 10 l Mize 2019-07-10 2019-07-10 Outpatient MHIE MHIE [id number] [facility] 10:00:00 10:00:00 09 l Mize 2019-07-10 2019-07-10 Outpatient MHIE MHIE [id number] [facility] 10:00:00 10:00:00 09 l Kapil 2019-01-10 2019-01-10 Outpatient MHIE MHIE [id number] [facility] 15:15:00 15:15:00 08 l Kapil 2019-01-10 2019-01-10 Outpatient MHIE MHIE [id number] [facility] 15:15:00 15:15:00 08 l Mize 2018-08-31 2018-08-31 Outpatient MHIE MHIE [id number] [facility] 08:15:00 08:15:00 07 l Mize 2018-08-31 2018-08-31 Outpatient MHIE MHIE [id number] [facility] 08:15:00 08:15:00 07 yvan Dick 2018-03-02 2018-03-02 Outpatient MHIE MHIE [id number] [facility] 11:00:00 11:00:00 06 yvan Dick 2018-03-02 2018-03-02 Outpatient MHIE MHIE [id number] [facility] 11:00:00 11:00:00 06 yvan Dick 2017-11-04 2017-11-04 Outpatient MHIE MHIE [id number] [facility] 08:30:00 08:30:00 05 yvan Dick 2017-11-04 2017-11-04 Outpatient MHIE MHIE [id number] [facility] 08:30:00 08:30:00 05 yvan Dick 2017-08-03 2017-08-03 Outpatient MHIE MHIE [id number] [facility] 11:30:00 11:30:00 04 yvan Dick 2017-08-03 2017-08-03 Outpatient MHIE MHIE [id number] [facility] 11:30:00 11:30:00 04 yvan Dick 2017-06-10 2017-06-10 Outpatient MHIE MHIE [id number] [facility]oria 09:15:00 09:15:00 03 yvan Dick 2017-06-10 2017-06-10 Outpatient MHIE MHIE [id number] [facility]oria 09:15:00 09:15:00 03 yvan Dick 2016-10-07 2016-10-07 Outpatient MHIE MHIE [id number] [facility]oria 08:15:00 08:15:00 02 yvan Dick 2016-10-07 2016-10-07 Outpatient MHIE MHIE [id number] [facility]oria 08:15:00 08:15:00 02 yvan Dick 2016-07-01 2016-07-01 Outpatient MHIE MHIE [id number] [facility] 16:15:00 16:15:00 01 yvan Dick 2016-07-01 2016-07-01 Outpatient MHIE MHIE [id number] [facility]oria 16:15:00 16:15:00 01 yvan Dick 2015-10-29 2015-10-29 Outpatient MHIE MHIE [id number] [facility] 10:00:00 10:00:00 00 yvan Dick 2015-10-29 2015-10-29 Outpatient MHIE MHIE [id number] [facility] 10:00:00 10:00:00 00 yvan Dick Results Test Description Test Time Test Comments Results Result [facility] e Comments [facility] 2022-09-06 BILATERAL NADIA 11:40:31 CAD DIGITAL Name: Elidia : 1980 Sex: F - SCR MAMM BILATERAL NADIA CAD DIGITALBILATERAL DIGITAL SCREENING MAMMOGRAM 3D/2D WITH CAD: 08/31/2022LINICAL: Asymptomatic. Digital breast tomosynthesis was performed in addition to routine CC and MLO views. Current mammographic images were evaluated by [employer] Windows CAD (computer-aided detection) software. No prior exams were available for comparison. There are scattered fibroglandular tissues in both breasts. There is a benign calcification in the right breast. No suspicious mass, architectural distortion, malignant type calcification, or lymph node abnormality detected. IMPRESSION: BENIGNThere is no mammographic evidence of malignancy. Resume annual screening mammography in one year. (09/01/2023) Rafi Pastrana/rock:09/06/2022 11:40:31 Grooming Assistant: Marcelle Owusu MM, [facility] Mammographyletter sent: BIRADS 1-2 Normal Mammogram BI-RADS: 2 Benign SURGICAL 2022-01-28 15:35:00 Test Item Value Reference Range Interpretation Comme nts SURGICAL RUN DATE: (test 01/28/22 [place] [facility] RUN TIME: 1535 Specimen Inquiry RUN USER: INTERFACE code = PATIENT: ELIDIA DAVIS LOC: [facility] U #: [id number] AGE/SX: 41/F [place] [facility] [place] DR: Christophe Dsouza MD : 80 BED: 1 DIS: 01/27/22 STATUS: DIS IN TLOC: SPEC #: [id number] RECD: 01/27/221144 [facility]: [id number] LANCE: 01/27/22- SUBM DR: Christophe Dsouza MD ENTERED: 01/27/22 SP TY PE: SURGICAL OTHR DR: Melyssa Rich NP ORDERED: [id number], ANATOMIC SPEC COPIES TO: Christophe Dsouza MD [address] [place] [address] [address] [place] [address] Melyssa Rich NP [address] [place], [place] [id number] PROCEDURES: 51298 (01/27/22) TISSUES: A. STOMACH SUBTOTAL / TOTAL RESECTION NOT TUMOR/ SLEEVE CLINICAL HISTORY SAME FINAL DIAGNOSIS Stomach, wedge excision: Mild chronic gastritis, margins a ppear viable. GROSS DESCRIPTION Received in formalin labeled stomach is a 18 x 3.3 cm wedge excision of jeremiah friedman. Theserosal surface is pink-gaspar and smooth. The lumen contains hemorrhagic material. Themuc kajal has normal rugal folds. No definite mass lesions are seen. Tissue is submitted(A)-(C) margins (D) major account representative tissue. Technical component performed at [address], [place] [address] Unless gross only, the diagnosis is based upon micr oscopic examination.Immunohistochemistry: This test was developed and its performance characteristicsd etermined by this laboratory. It has not been approved nor does it need approvalby the [place] FDA. Appro priate positive and negative controls are reviewed and judgedto be acceptable. This laboratory is certified under the Clinical Laboratory ImprovementAmendments (CLIA-88) as qualified to perform high complexity clinical laboratory testing. CONTINUED ON NEXT PAGE RUN DATE: 01/28/22 [place] - LAB P AGE 2 RUN TIME: 1535 Specimen Inquiry RUN USER: INTERFACE SPEC #: [id number] PATIENT: ELIDIA MARTIN #[id number] (Continued) MICROSCOPIC DESCRIPTION Sect ions of the stomach reveal viable margins. The mucosa shows mild chronic inflammationand the lamina p ropria. There are small lymphoid aggregates. No significant active acuteinflammation is seen. C LINICAL INFORMATION DIABETES, GASTROESOPHAGEAL REFLUX DISEASE, SEVERE OBESITY HIGH CHOLESTEROL Signed SIGNATURE ON FILE Junaid Priest Urszula PHILLIPS 01/28/22 1 535 END OF REPORT GLUCOSE [id number] 13:22:00 Test Item Value Reference Range Interpretation Comments GLUCOSE BEDSIDE (test 152 MG/DL 70-110 H Perfor med by certified code = GLUBED) panel raiser operator at [facility] GLUCOSE [id number] 11:24:00 Test Item Value Reference Range Interpretation Comments GLUCOSE BEDSIDE (test 233 MG/DL 70-110 H Perfor med by certified code = GLUBED) panel raiser operator at [facility] CBC W/AUTO [id number] 08:25:00 Test Item Value Reference Range Interpretation Comments WHITE BLOOD CELL (test code = 16.2 x10 3/uL 4.5-11.0 H WBC) RED BLOOD CELL (test code = 4.66 x10 6/uL 3.54-5.02 N RBC) HEMOGLOBIN (test code = HGB) 13.3 g/dL 11.0-15.0 N HEMATOCRIT (test code = HCT) 38.9 % 33.0-45.0 N MEAN CELL VOLUME (test code = 83.5 fL 81.0-99.0 N MCV) MEAN CELL HGB (test code = 28.5 pg 27.0-33.0 N MCH) MEAN CELL HGB CONCETRATION 34.2 g/dL 33.0-37.0 N (test code = MCHC) RED CELL DISTRIBUTION WIDTH CV 12.0 % 11.5-14.5 N (test code = RDW) RED CELL DISTRIBUTION WIDTH SD 36.0 fL 37.0-54.0 L (test code = RDW-SD) PLATELET COUNT (test code = 273 x10 3/uL 150-400 N PLT) MEAN PLATELET VOLUME (test 10.3 fL 7.0-9.0 H code = MPV) NEUTROPHIL % (test code = NT%) 77.9 % 56.0-77.0 H IMMATURE GRANULOCYTE % (test 0.6 % 0.0-2.0 N code = IG%) LYMPHOCYTE % (test code = LY%) 15.0 % 14.0-32.0 N MONOCYTE % (test code = MO%) 6.2 % 4.8-9.0 N EOSINOPHIL % (test code = EO%) 0.1 % 0.3-3.7 L BASOPHIL % (test code = BA%) 0.2 % 0.0-2.0 N NUCLEATED RBC % (test code = 0.0 % 0-0 N NRBC%) NEUTROPHIL # (test code = NT#) 12.66 x10 3/uL 2.0-7.6 H IMMATURE GRANULOCYTE # (test 0.09 x10 3/uL 0.00-0.03 H code = IG#) LYMPHOCYTE # (test code = LY#) 2.43 x10 3/uL 1.0-3.8 N MONOCYTE # (test code = MO#) 1.00 x10 3/uL 0.1-0.8 H EOSINOPHIL # (test code = EO#) 0.02 x10 3/uL 0.0-0.2 N BASOPHIL # (test code = BA#) 0.03 x10 3/uL 0.0-0.2 N NUCLEATED RBC # (test code = 0.00 x10 3/uL 0.0-0.1 N NRBC#) MANUAL DIFF REQUIRED (test NO code = MDIFF) BASIC METABOLIC [id number] 07:52:00 Test Item Value Reference Range Interpretation Comments SODIUM (test code = NA) 136 mEq/L 134-147 N POTASSIUM (test code = 3.8 mEq/L 3.4-5.0 N K) CHLORIDE (test code = 105 mEq/L 100-108 N CL) CARBON DIOXIDE (test 24 mEq/l 21-33 N code = CO2) ANION GAP (test code = 11 0-20 N GAP) GLUCOSE (test code = 126 mg/dL 70-110 H GLU) BLOOD UREA NITROGEN 8 mg/dL 7-18 N (test code = BUN) GLOMERULAR FILTRATION 110.2 95-105 H Units of measure = RATE (test code = GFR) ml/mi n/1.73 m2 CREATININE (test code = 0.6 mg/dL 0.6-1.3 N CREAT) CALCIUM (test code = 8.1 mg/dL 8.0-10.5 N CA) GLUCOSE [id number] 06:30:00 Test Item Value Reference Range Interpretation Comments GLUCOSE BEDSIDE (test 129 MG/DL 70-110 H Perfor med by certified code = GLUBED) panel raiser operator at [facility] GLUCOSE [id number] 21:39:00 Test Item Value Reference Range Interpretation Comments GLUCOSE BEDSIDE (test 164 MG/DL 70-110 H Perfor med by certified code = GLUBED) panel raiser operator at [facility] GLUCOSE [id number] 17:21:00 Test Item Value Reference Range Interpretation Comments GLUCOSE BEDSIDE (test 199 MG/DL 70-110 H Perfor med by certified code = GLUBED) panel raiser operator at [facility] GLUCOSE [id number] 11:42:00 Test Item Value Reference Range Interpretation Comments GLUCOSE BEDSIDE (test 218 MG/DL 70-110 H Perfor med by certified code = GLUBED) panel raiser operator at [facility] GLUCOSE [id number] 08:03:00 Test Item Value Reference Range Interpretation Comments GLUCOSE BEDSIDE (test 142 MG/DL 70-110 H Perfor med by certified code = GLUBED) panel raiser operator at [facility] HELICOBACTER PYLORI IGM [id number] 15:11:00 Test Item Value Reference Interpretation Comments Range HELICOBACTER <9.0 units 0.0-8.9 Negative <9.0 Equivocal 9.0 PYLORI IGM AB - 11.0 Positiv e >11.0This (test code = test was develo ped and its HELIMAB) performance characteristics determined by [facility]. It has not been cleared orappro ivon by the Food and Drug Administration. Performed At: [place] [id number] [place], [place] [id number] [facility]ptali [facility] Ph:[phone] AB HELICOBACTER [id number] 15:11:00 Test Item Value Reference Range Interpretation Comments AB HELICOBACTER IGG (test 0.62 0.00-0.79 IN FCE Result Units: code = HELIGAB) Index Value Negative <0.80 Equivocal 0.80 - 0.89 Positive >0.89Performed At: [facility] [place] [id number] [place], [place] [id number] uskyler Almaguer MD Ph:[phone] COMPREHENSIVE METABOLIC [id number] 15:36:00 Test Item Value Reference Range Interpretation Comments SODIUM (test code = NA) 138 mEq/L 134-147 N POTASSIUM (test code = 4.0 mEq/L 3.4-5.0 N K) CHLORIDE (test code = 103 mEq/L 100-108 N CL) CARBON DIOXIDE (test 28 mEq/l 21-33 N code = CO2) ANION GAP (test code = 11 0-20 N GAP) GLUCOSE (test code = 162 mg/dL 70-110 H GLU) BLOOD UREA NITROGEN 10 mg/dL 7-18 N (test code = BUN) GLOMERULAR FILTRATION 92.2 95-105 L Units of measure = RATE (test code = GFR) ml/mi n/1.73 m2 CREATININE (test code = 0.7 mg/dL 0.6-1.3 N CREAT) TOTAL PROTEIN (test 6.6 g/dL 6.4-8.2 N code = PROT) ALBUMIN (test code = 3.60 g/dL 3.4-5.0 N ALB) CALCIUM (test code = 9.2 mg/dL 8.0-10.5 N CA) BILIRUBIN TOTAL (test 0.40 mg/dL 0.0-1.0 N code = BILT) SGOT/AST (test code = 14 IUnit/L 15-37 L AST) SGPT/ALT (test code = 17 IUnit/L 30-65 L ALT) ALKALINE PHOSPHATASE 68 IUnit/L 20-125 N TOTAL (test code = ALKP) Indication for Test: Malabsorption/MalnutritioSERUM [id number] 15:36:00 Test Item Value Reference Range Interpretation Comments SERUM IRON (test code = IRON) 69 mcg/dL 35-150 N Indication for Test: Malabsorption/MalnutritioVITAMIN [id number] 15:36:00 Test Item Value Reference Range Interpretation Comments VITAMIN B12 (test code = VITB12) 414 pg/mL 193-986 N Indication for Test: Malabsorption/MalnutritioTHYROID STIMULATING HORMONE 2022-01-22 15:36:00 Test Item Value Reference Range Interpretation Comments THYROID STIMULATING 0.74 0.42-5.47 N Results in HORMONE (test code = TSH) mi lli-International Units/mL Indication for Test: Malabsorption/MalnutritioVITAMIN D [id number] 15:36:00 Test Item Value Reference Range Interpretation Comments VITAMIN D 25-HYDROXY (test code = 25.8 ng/mL 30-100 L VITD25) Indication for Test: Malabsorption/MalnutritioHCG SERUM [id number] 11:19:00 Test Item Value Reference Range Interpretation Comments HCG SERUM QUAL (test code = SERUM NEGATIVE NEGATIVE HCGQL) PROTHROMBIN [id number] 11:17:00 Test Item Value Reference Range Interpretation Comments PROTHROMBIN TIME 10.7 SECONDS 9.3-12.9 N PATIENT (test code = PTP) INTERNATIONAL NORMAL 1.0 0.8-1.2 N TARGET INR BY RATIO (test code = INDICATIO N Indication INR) INR1. Prophylax is of venous thrombos is 2.0 - 3.0 (orthoped ic surgery), Proph ylaxis of venous throm bosis (other than hig h-risk surgery), Treat ment of Deep Vein Thrombosis/Pulm onary Embolism, Preve ntion of systemic emb olism - Tissue heart va lves, Acute Myocardia l Infarction (to prevent systemic emboli sm), Valvular heart disease, Atrial Fibrillation, Bileaflet mecha nical valve in aortic position.2. Mec hanical prosthetic valv es (high risk), 2. 5 - 3.5 Presence of Lup us Anticoagulant o r Antiphospholipi d Antibodies, Pre vention of systemic emb olism - Acute Myocardia l Infarction (to prevent recurrent infar ct). THROMBOPLASTIN TIME [id number] 11:17:00 Test Item Value Reference Range Interpretation Comments THROMBOPLASTIN TIME 30.9 Seconds 25.0-39.5 N Therape utic Range: PARTIAL (test code = 50.4 - 88.3 Seconds PTT) Effective 11/14/2018 CBC W/AUTO [id number] 11:01:00 Test Item Value Reference Range Interpretation Comments WHITE BLOOD CELL (test code = 11.3 x10 3/uL 4.5-11.0 H WBC) RED BLOOD CELL (test code = 5.22 x10 6/uL 3.54-5.02 H RBC) HEMOGLOBIN (test code = HGB) 14.9 g/dL 11.0-15.0 N HEMATOCRIT (test code = HCT) 43.1 % 33.0-45.0 N MEAN CELL VOLUME (test code = 82.6 fL 81.0-99.0 N MCV) MEAN CELL HGB (test code = MCH) 28.5 pg 27.0-33.0 N MEAN CELL HGB CONCETRATION 34.6 g/dL 33.0-37.0 N (test code = MCHC) RED CELL DISTRIBUTION WIDTH CV 12.0 % 11.5-14.5 N (test code = RDW) PLATELET COUNT (test code = 279 x10 3/uL 150-400 N PLT) NEUTROPHIL % (test code = NT%) 67.2 % 56.0-77.0 N LYMPHOCYTE % (test code = LY%) 24.7 % 14.0-32.0 N NEUTROPHIL # (test code = NT#) 7.56 x10 3/uL 2.0-7.6 N LYMPHOCYTE # (test code = LY#) 2.78 x10 3/uL 1.0-3.8 N MANUAL DIFF REQUIRED (test code NO = MDIFF) RED CELL DISTRIBUTION WIDTH SD 35.8 fL 37.0-54.0 L (test code = RDW-SD) MEAN PLATELET VOLUME (test code 10.2 fL 7.0-9.0 H = MPV) IMMATURE GRANULOCYTE % (test 0.4 % 0.0-2.0 N code = IG%) MONOCYTE % (test code = MO%) 5.2 % 4.8-9.0 N EOSINOPHIL % (test code = EO%) 2.1 % 0.3-3.7 N BASOPHIL % (test code = BA%) 0.4 % 0.0-2.0 N NUCLEATED RBC % (test code = 0.0 % 0-0 N NRBC%) IMMATURE GRANULOCYTE # (test 0.05 x10 3/uL 0.00-0.03 H code = IG#) MONOCYTE # (test code = MO#) 0.59 x10 3/uL 0.1-0.8 N EOSINOPHIL # (test code = EO#) 0.24 x10 3/uL 0.0-0.2 H BASOPHIL # (test code = BA#) 0.05 x10 3/uL 0.0-0.2 N NUCLEATED RBC # (test code = 0.00 x10 3/uL 0.0-0.1 N NRBC#) Notes Date/Time Note Provider Source 2022-01-27 13:15:00-00:00 [facility] Discharge Summary REPORT#:[id number] REPORT STATUS: Signed DATE:01/27/22 TIME: 1314 PATIENT: ELIDIA MARTIN UNIT #: [id number] ROOM/BED: [place] [address] : 80 AGE: 41 SEX: F ATTEND: Christophe Dsouza ADM AUTHOR: Elana Grubbs * ALL edits or amendments must be made on the [employer]/computer document * Elana Grubbs 01/27/22 1315: General Information Date of admission: Observation Start Date: Date of admission: 01/26/22 Discharge date: 01/27/22 Admission diagnosis: morbid obesity, GERD, DM Discharge diagnosis: same Hospital course: The patient reports she is tolerating li quids without nausea or vomiting. Pain is controlled with medication, pain currently 3/ 10. Ambulating and belching. Denies passage of gas, chest pain, or shortness of breath. Pt. condition on discharge: stable Med Rec Med Rec Discharge meds: Stop taking the following medications: metFORMIN (GLUCOPHAGE) 1,000 MG TAB 1,000 MILLIGRAM ORAL DAILY. Continue taking these medications: DULAGLUTIDE (TRULICITY) 0.75 MG/0.5 ML PEN.INJCT R 0.75 MILLIGRAM SUBCUTANEOUS EVERY 7 DAYS. ROSUVASTATIN (CRESTOR) 20 MG TAB 20 MILLIGRAM ORAL BEDTIME. [birthcontrol implant] Start taking the following new medications: ACETAMINOPHEN/CODEINE (TYLEN OL WITH CODEINE 120-12 MG/5ML) 120 MG-12 MG/5 ML (5 ML) ELIXIR 15 MILLILITERS ORAL EVERY 4 HOURS NEEDED. as needed for acute pain Qty = 250 Refills = 1 Objective VS/I O Last Documented: Result Date Time Pulse Ox 97 01/27 1203 B/P 111/71 01/27 1203 B/P Mean 84.7 01/27 1203 O2 Delivery Room air 01/27 1203 Temp 98.6 01/27 1203 Pulse 87 01/27 1203 Resp 14 01/27 1203 O2 Flow Rate 10 01/26 1210 24 hour I O ending at 0700: 01/27 0700 01/26 1900 Intake Total 700.00 Output Total Balance 700.00 Intake, IV 700.00 Intake, Oral 0 Number Voids 1 1 PATIENT WEIGHT: Weight (lb): 226 Weight (oz): 10.16 Weight (kg): 102.800 General appearance: alert, awake, oriented Head/Eyes: atraumatic, normocephalic, PERRLA Neck: full range of motion Cardiovascular: regular rate rhythm Respiratory: no distress, symmetric expansion GI: soft, no guarding, no rebound, no distention Extremities: moves all Musculoskeletal: full range of motion Neuro/[employer]: alert, oriented X 3, normal speech Skin: dry, intact, no gross abnormalities Wound/incision: Location: abdomen Site Condition: edges approximated, incision in tact Psychiatry: normal affect, normal judgment/insig ht Results Findings/Data: Laboratory Tests: 01/27 01/27 01/27 01/26 0916 0515 0501 2128 Chemistry Sodium (134 - 147 mEq/L) 136 Potassium (3.4 - 5.0 mEq/L) 3.8 Chloride (100 - 108 mEq/L) 105 Carbon Dioxide (21 - 33 mEq/l) 24 Anion Gap (0 - 20) 11 BUN (7 - 18 mg/dL) 8 Creatinine (0.6 - 1.3 mg/dL) 0.6 Glomerular Filtr Rate (95 - 105) 110.2 H Glucose (70 - 110 mg/dL) 126 H POC Glucose (70 - 110 MG/DL) 233 H 129 H 164 H Calcium (8.0 - 10.5 mg/dL) 8.1 Hematology WBC (4.5 - 11.0 x10 3/uL) 16.2 H RBC (3.54 - 5.02 x10 6/uL) 4.66 Hgb (11.0 - 15.0 g/dL) 13.3 Hct (33.0 - 45.0 %) 38.9 MCV (81.0 - 99.0 fL) 83.5 MCH (27.0 - 33.0 pg) 28.5 MCHC (33.0 - 37.0 g/dL) 34.2 RDW (11.5 - 14.5 %) 12.0 Plt Count (150 - 400 x10 3/uL) 273 MPV (7.0 - 9.0 fL) 10.3 H Neut % (Auto) (56.0 - 77.0 %) 77.9 H Lymph % (Auto) (14.0 - 32.0 %) 15.0 [place] % (Auto) (4.8 - 9.0 %) 6.2 Eos % (Auto) (0.3 - 3.7 %) 0.1 L Baso % (Auto) (0.0 - 2.0 %) 0.2 Neut # (Auto) (2.0 - 7.6 x10 3/uL) 12.66 H Lymph # (Auto) (1.0 - 3.8 x10 3/uL) 2.43 [place] # (Auto) (0.1 - 0.8 x10 3/uL) 1.00 H Eos # (Auto) (0.0 - 0.2 x10 3/uL) 0.02 Baso # (Auto) (0.0 - 0.2 x10 3/uL) 0.03 Abs Immat Gran (auto) (0.00 - 0.03 x10 3/uL) 0. 09 H Add Manual Diff NO Immature Gran % (0.0 - 2.0 %) 0.6 Nucleated RBC % (0 - 0 %) 0.0 Nucleated RBCs # (Man) (0.0 - 0.1 x10 3/uL) 0.0 0 01/26 1709 Chemistry POC Glucose (70 - 110 MG/DL) 199 H Results: labs reviewed, vital signs reviewed Discharge Instructions PCP PCP: PCP: Melyssa Rich MEDICAL RECORD CLERK )( Discharge to: Home/Self Care Discharge Instructions Additional Discharge Routines: Attending Follow-Up, Equipment/Supplies, Wound/ Dressing Care )( Diet: Bariatric Liquid Diet, crush meds prior to ingestion )( Activity: As Tolerated, No Lifting >10lbs, No Strenuous Activity )( Wound/dressing care: Do not submerge incision, Keep wound clean and dry, OK to shower tomorrow )( Equipment/supplies: Use IS at least 10x/hour while awake Wear abdominal binder while awake and active Time spent: Time spent on patient care (minutes): 20 Follow-up Appointments Attending Physician: Attending Physician: Christophe Dsouza MD Attending physician follow up timeframe: 1 week Special instructions: Monitor blood sugar at home, may need to adjust meds Christophe Dsouza 02/03/22 1518: Attestations Physician Attestation Agree w/findings plan: Agree with the findings and plan as documented Electronically Signed by Elana Grubbs on at 1321 Electronically Signed by Christophe Dsouza MD on 2 at 1521 [facility] #:[id number] END OF REPORT 2022-01-26 18:16:00-00:00 [id number] [place] [address] PATIENT NAME: ELIDIA MARTIN ADMIT DATE: 01/26/22 ACCOUNT NO: [id number] ROOM NO: G.560 AGE: 41 REPORT TYPE: OPERATIVE REPORT SEX: F ADMITTING PHYSICIAN:Christophe Dsouza MD ATTENDING PHYSICIAN:Christophe Dsouza MD OPERATION DATE: 01/26/2022 ADDED TO ORIGINAL REPORT - 01/27/2022 [id number] ADDENDUM After I removed the Lap-Band , I then used a Bovie cautery and dissected out the subcutaneous port and removed the subcutaneous p ort, the tubing, and the Lap-Band all in one piece. Once this was done, I then now proceeded with the sleeve gastrectomy. I started out by using sharp scissor to dissect down the capsule from the previous La p-Band. Combination of traction and countertraction was used for this. After that, I then now procee ded to measure 6 cm from the pylorus and I divided the greater omentum off th e greater curvature of the stomach using the LigaSure. I then also took robby n the short gastric using the LigaSure. Once that was accomplished, I then now dissected out the rest of the scar tissue around the GE junction to restore pr evious anatomy. Once the previous anatomy was restore d, I then now proceeded to put in a 42-[place] bougie into the antrum to perform the sleeve. I have be en in the process of putting the bougie. We were unable to pass the b ougie due to a newly discovered hiatal hernia. At this junction, I then now proceeded t o repair the hiatal hernia first. I continued to free up more scar tissue a nd the capsule of the band around the stomach and the posterior surface. I then dissected out the right diaphragmatic leah using the LigaSure. I then di vided the hernia sac circumferentially using the LigaSure. Once that was accomplished, I then now proceeded to mobilize the esophagus out the aort a using the LigaSure. I mobilized the esophagus off the aorta again abou t 2 to 4 cm intra-abdominal esophagus and also restored the angle of His. On ce that was done, I then now elevated up the esophagus and repaired the hiata l hernia. I approximated the left and the right diaphragmatic leah us ing 0 Ethibond pledgets. Once that was accomplished, I then now pro ceeded to perform the sleeve gastrectomy. I divided greater omentum off the greater curvature of the stomach using the LigaSure. Once that was accomplished, I then now proceeded to the rest of the sleeve gastrectomy. I pushed the 42-[place] bougie into the antrum without any issue now once the hiatal hernia is repaired. Once that was done, I then divided the stomach along the 42-[place] bougie. A total of 2 green, 3 gold, and 2 blue were used to divide the stomach along the 42-[place] b ougie. Once this was done, I then removed the bougie and performed an EGD. EG D was unremarkable. No angulation, twisting or kinking. No bleeding was seen. Hiatal hernia had been repaired. At this time, I then suctioned out all fluid and blood clot. The resected stomach was removed through the 12-mm t rocar. Fascia was closed with interrupted 0 Vicryl. Pneumoperitoneum was desuf flated and trocar removed. Skin was closed with 3-0 Vicryl and 4-0 Monocryl . Dermabond was applied. The patient tolerated the proced ure well, was extubated and transferred to recovery PATIENT NAME: ELIDIA MARTIN ACCOUNT #: G [id number] room for further care. Dictated By: Christophe Dsouza MD WT: OP:GMENA/SUE/KAROLYN Conf#: [id number]/DID#: [id number] Authenticated by Christophe Dsouza MD On 02/02/2022 05: 53:52 PM Electronically Signed by Christophe Dsouza MD on at 0553 PATIENT NAME: ELIDIA MARTIN ACCOUNT #: G [id number] 2022-01-26 18:10:00-00:00 [id number] [place] [address] PATIENT NAME: ELIDIA MARTIN ADMIT DATE: 01/26/22 ACCOUNT NO: [id number] ROOM NO: G.560 AGE: 41 REPORT TYPE: OPERATIVE REPORT SEX: F ADMITTING PHYSICIAN:Christophe Dsouza MD ATTENDING PHYSICIAN:Christophe Dsouza MD OPERATION DATE: 01/26/2022 PREOPERATIVE DIAGNOSES: 1. Gastroesophageal reflux disease. 2. Hiatal hernia. 3. Diabetes. 4. Morbid obesity, body mass index greater than 35. 5. Slipped Lap-Band. POSTOPERATIVE DIAGNOSES: 1. Gastroesophageal reflux disease. 2. Hiatal hernia. 3. Diabetes. 4. Morbid obesity, body mass index greater than 35. 5. Slipped Lap-Band. PROCEDURES PERFORMED: 1. Laparoscopic Lap-Band and subcutaneous port r emoval. 2. Laparoscopic hiatal hernia repair. 3. Laparoscopic sleeve gastrectomy with intraope rative EGD. SURGEON: Christophe Dsouza MD ANESTHESIA: General. INTRAVENOUS FLUIDS: Crystalloid. BLOOD LOSS: Less than 30 mL. URINE OUTPUT: Not measured. ASSISTANTS: 1. BLAKE Crane 2. CECI Hernandez Ms. has helped to opening and c losing the patient and helped to drive the camera to retract tissue and expose anatomy. BRIEF HISTORY: This is a pleasant 41-year-old fe male, who presented to my clinic with a history of a Lap-Band. She was wor ked up and found to have a slipped Lap-Band, in addition she is also found to have reflux and fell this week. I recommended conversion of a Lap-Band wit h sleeve gastrectomy. Risks and benefits of procedure were discussed. Inform ed consent was obtained. The PATIENT NAME: ELIDIA MARTIN ACCOUNT #: G [id number] patient was preoped for surgery. PROCEDURE IN DETAIL: The pat ient was transferred to the operating room and laid in the supine position. The patient was sedated and intubated. Perioperative antibiotic, body warmer, and SCD were used. The patient was then prepped and draped in sterile surgical f ashion. I entered the abdomen using a 5-mm Optiview trocar technique. Pneumoperitoneum was establish ed. I then placed three more 5-mm trocars, a 12 mm trocar and a liver retract or. I first identified the Lap-Band. ADDENDUM After I removed the Lap-Band , I then used a Bovie cautery and dissected out the subcutaneous port and removed the subcutaneous p ort, the tubing, and the Lap-Band all in one piece. Once this was done, I then now proceeded with the sleeve gastrectomy. I started out by using sharp scissor to dissect down the capsule from the previous La p-Band. Combination of traction and countertraction was used for this. After that, I then now procee ded to measure 6 cm from the pylorus and I divided the greater omentum off th e greater curvature of the stomach using the LigaSure. I then also took robby n the short gastric using the LigaSure. Once that was accomplished, I then now dissected out the rest of the scar tissue around the GE junction to restore pr evious anatomy. Once the previous anatomy was restore d, I then now proceeded to put in a 42-[place] bougie into the antrum to perform the sleeve. I have be en in the process of putting the bougie. We were unable to pass the bougie due to a newly discovered hiatal hernia. At this junction, I then now proceeded t o repair the hiatal hernia first. I continued to free up more scar tissue a nd the capsule of the band around the stomach and the posterior surface. I then dissected out the right diaphragmatic leah using the LigaSure. I then di vided the hernia sac circumferentially using the LigaSure. Once that was accomplished, I then now proceeded to mobilize the esophagus out the aort a using the LigaSure. I mobilized the esophagus off the aorta again abou t 2 to 4 cm intra-abdominal esophagus and also restored the angle of His. On ce that was done, I then now elevated up the esophagus and repaired the hiata l hernia. I approximated the left and the right diaphragmatic leah us ing 0 Ethibond pledgets. Once that was accomplished, I then now pro ceeded to perform the sleeve gastrectomy. I divided greater omentum off the greater curvature of the stomach using the LigaSure. Once that was accomplished, I then now proceeded to the rest of the sleeve gastrectomy. I pushed the 42-[place] bougie into the antrum without any issue now once the hiatal hernia is repaired. Once that was done, I then divided the stomach along the 42-[place] bougie. A total of 2 green, 3 gold, and 2 blue were used to divide the stomach along the 42-[place] b ougie. Once this was done, I then removed the bougie and performed an EGD. EG D was unremarkable. No angulation, twisting or kinking. No bleeding was seen. Hiatal hernia had been repaired. At this time, I then suctioned out all fluid and blood clot. The resected stomach was removed through the 12-mm t rocar. Fascia was closed with interrupted 0 Vicryl. Pneumoperitoneum was desuf flated and trocar removed. Skin was closed with 3-0 Vicryl and 4-0 Monocryl . Dermabond was applied. The patient tolerated the proced ure well, was extubated and transferred to recovery room for further care. ADDENDUM WT: OP:GMENA/SUE/KAROLYN PATIENT NAME: ELIDIA MARTIN ACCOUNT #: G [id number] Conf#: [id number]/DID#: [id number] Dictated By: Christophe Dsouza MD WT: OP:MACKENZIE/SUE/KAROLYN Conf#: [id number]/DID#: [id number] Authenticated by Christophe Dsouza MD On 02/02/2022 05: 53:45 PM Electronically Signed by Christophe Dsouza MD on at 0553 PATIENT NAME: ELIDIA MARTIN ACCOUNT #: G [id number] 2022-01-22 10:40:00-00:00 [id number] [place] [address] PATIENT NAME: ELIDIA MARTIN ADMIT DATE: ACCOUNT NO: [id number] ROOM NO: AGE: 41 REPORT TYPE: eELECTROCARDIOGRAM REPORT SEX: F ADMITTING PHYSICIAN:Christophe Dsouza MD ATTENDING PHYSICIAN:Christophe Dsouza MD Order: [id number] Test Reason : PREOP Test Date/Time Stamp: TueJan 22 2022 10:40:27 Blood Pressure : / mmHG Vent. Rate : 077 BPM Atrial Rate : 077 BPM P-R Int : 140 ms QRS Dur : 078 ms QT Int : 376 ms P-R-T Axes : 057 032 038 degree s QTc Int : 425 ms Normal sinus rhythm Normal ECG No previous ECGs available Confirmed by KHANG PETERS ([id number]) on 01/22/2022 11 :07:52 AM Referred By: Christophe Dsouza Confirmed by:KHANG PETESR Electronically Signed by Khang Peters MD on at 1104 PATIENT NAME: ELIDIA MARTIN ACCOUNT #: G [id number]
[2023-02-10 18:17] LABS: Absolute Lymphocytes (CBC) 2.6 K/uL (0.7-4.9); Hematocrit 39.9 % (36.0-45.0); Lymphocytes % 21.9 % (15.3-44.8); MCV 83.4 fL (80-100); MPV 8.1 fL (7.6-11.3); RBC Red Blood Cell Count 4.78 M/uL (3.86-4.86)
[2023-02-10 18:23] LABS: Albumin 3.7 g/dL (3.4-5.0); Bilirubin Total 0.5 mg/dL (0.2-1.0); Magnesium 2.2 mg/dL (1.6-2.4); Potassium 3.6 mEq/L (3.5-5.1); Protein, Total 8.1 g/dL (6.4-8.2); Troponin High Sensitivity 3.3 pg/mL (<58.9)
--- NOTE | 2023-02-10 18:41 | RAD REPORT ---
EXAM DESCRIPTION: CT - Head Brain Wo Cont - 02/10/2023 6:15 pm CLINICAL HISTORY: HEADACHE Headache, drowsiness COMPARISON: No comparisons TECHNIQUE: All CT scans are performed using dose optimization technique as appropriate and may inclu de automated exposure control or mA/KV adjustment according to patient size. FINDINGS: No intracranial hemorrhage, hydrocephalus or extra-axial fluid collection.No areas of brai n edema or evidence of midline shift. Multifocal fluid is present in the paranasal sinuses. The calvarium is intact. IMPRESSION: No acute intracranial abnormality. Mild multifocal sinusitis.
--- NOTE | 2023-02-10 19:13 | EDPHYS ---
Physician Documentation [facility] Name: Elidia Sandoval Age: 42 yrs Sex: Female : 1980 Arrival Date: 02/10/2023 Time: 16:36 Bed IW1 Private MD: ED Physician Sofia Baer HPI: 02/10 17:41 This 42 yrs old Female presents to ER via Ambulatory with complaints of Headache, Flu sb4 Symptoms. 17:41 42-year-old female no past medical history presents with complaints of generalized sb4 weakness, right-sided facial pain, sore throat, and weakness. She states that she had a stomach bug on Tuesday that lasted about 48 hours. Then on Tuesday, she started experiencing a sore throat. She tested negative for COVID, flu, and strep. She states that her symptoms have not improved and now her headache is causing pain to her entire right face. Denies any asymmetric weakness, numbness/tingling, photophobia, visual changes. Historical: - Allergies: 17:07 Melon (Cucumis peralta); ll1 - Home Meds: 19:21 control in L ar [Active]; kd3 - PMHx: 17:07 None; ll1 - PSHx: 17:07 None; ll1 - Immunization history:: Adult Immunizations up to date, Client reports receiving the 2nd dose of the Covid vaccine. - Social history:: Smoking status: Patient denies any tobacco usage or history of. ROS: 17:42 Eyes: Negative for injury, pain, redness, and discharge, Cardiovascular: Negative for sb4 chest pain, palpitations, and edema, Respiratory: Negative for shortness of breath, cough, wheezing, and pleuritic chest pain, Abdomen/GI: Negative for abdominal pain, nausea, vomiting, diarrhea, and constipation, MS/Extremity: Negative for injury and deformity, Skin: Negative for injury, rash, and discoloration. 17:42 Constitutional: Positive for fatigue, fever. 17:42 Neuro: Positive for headache, weakness, Negative for altered mental status, dizziness, gait disturbance, seizure activity, syncope. 17:42 All other systems are negative. Exam: 17:42 Head/Face: Normocephalic, atraumatic. Eyes: Extra-ocular motions intact. Periorbital sb4 areas with no swelling, redness, or edema. Cardiovascular: Regular rate and rhythm with a normal S1 and S2. Respiratory: Lungs have equal breath sounds bilaterally, clear to auscultation and percussion. No rales, rhonchi or wheezes noted. No increased work of breathing, no retractions or nasal flaring. Abdomen/GI: Soft, non-tender, no distension. Skin: Warm, dry with normal turgor. Normal color with no rashes, no lesions, and no evidence of cellulitis. MS/ Extremity: Pulses equal, no cyanosis. Neurovascular intact. Full, normal range of motion. Neuro: Awake and alert, GCS 15, oriented to person, place, time, and situation. Cranial nerves II-XII grossly intact. Motor strength 5/5 in all extremities. Sensory grossly intact. Cerebellar exam normal. Normal gait. 17:42 Constitutional: The patient appears alert, awake, uncomfortable, pale 17:42 ENT: dry mucous membranes. Vital Signs: 17:08 BP 131 / 82; Pulse 94; Resp 18; Temp 98.8; Pulse Ox 100% ; Weight 94.35 kg; Height 5 ll1 ft. 7 in. ; Pain 10/10; 19:12 BP 129 / 67; Pulse 74; Pulse Ox 100% ; ah1 17:08 Body Mass Index 32.58 (94.35 kg, 170.18 cm) ll1 17:08 Pain Scale: Adult ll1 Giovanna Coma Score: 19:12 Eye Response: spontaneous(4). Motor Response: obeys commands(6). Verbal Response: sb4 oriented(5). Total: 15. MDM: 16:41 Patient medically screened. sb4 17:45 Differential diagnosis: cluster headache, cerebral vascular accident, hypoglycemia, sb4 hyponatremia, meningitis, migraine, sinusitis, temporal arteritis, tension headache, trigeminal neuralgia. 19:12 Data reviewed: vital signs, nurses notes, lab test result(s), radiologic studies, and sb4 as a result, I will discharge patient. Counseling: I had a detailed discussion with the patient and/or guardian regarding: the historical points, exam findings, and any diagnostic results supporting the discharge/admit diagnosis, lab results, radiology results, to return to the emergency department if symptoms worsen or persist or if there are any questions or concerns that arise at home. 02/10 17:19 Order name: COVID-19 SARS RT PCR; Complete Time: 18:56 sb4 02/10 17:19 Order name: Flu; Complete Time: 02:21 sb4 02/10 17:19 Order name: CBC with Diff; Complete Time: 18:43 sb4 02/10 17:19 Order name: CMP; Complete Time: 18:24 sb4 02/10 17:19 Order name: Lactate w/ 2H reflex if indic.; Complete Time: 18:21 sb4 02/10 17:19 Order name: Magnesium; Complete Time: 18:24 sb4 02/10 17:19 Order name: Troponin High Sensitivity; Complete Time: 18:24 sb4 02/10 17:42 Order name: [place] Screen Profile; Complete Time: 18:56 sb4 02/10 17:19 Order name: Head Brain Wo Cont CT; Complete Time: 18:42 sb4 02/10 17:19 Order name: Accucheck; Complete Time: 19:03 sb4 02/10 17:19 Order name: IV Saline Lock - Large Bore; Complete Time: 19:01 sb4 02/10 17:19 Order name: Labs collected and sent; Complete Time: 19:01 sb4 02/10 17:19 Order name: O2 Per Protocol; Complete Time: 19:03 sb4 02/10 17:19 Order name: O2 Sat Monitoring; Complete Time: 19:03 sb4 02/10 17:19 Order name: Vital Signs; Complete Time: 19:13 sb4 Administered Medications: No medications were administered Disposition Summary: 02/10/23 19:12 Discharge Ordered Location: Home sb4 Problem: an ongoing problem sb4 Symptoms: have improved sb4 Condition: Stable sb4 Diagnosis - Acute pansinusitis sb4 Followup: sb4 - With: - When: 2 - 3 days - Reason: If symptoms return, Recheck today's complaints, Continuance of care Discharge Instructions: - Discharge Summary Sheet sb4 - Sinusitis, Adult, [id number] sb4 Forms: - Medication Reconciliation Form sb4 - Thank You Letter sb4 - Antibiotic Education sb4 - Prescription Opioid Use sb4 - Patient Portal Instructions sb4 Prescriptions: - Augmentin 875-125 mg Oral Tablet - take 1 tablet by ORAL route every 12 hours for 10 days; 20 tablet; Refills: 0, sb4 Product Selection Permitted - Medrol (Salbador) 4 mg Oral Tablets, Dose Pack - take 1 tablet by ORAL route as directed - follow package instructions; 1 sb4 packet; Refills: 0, Product Selection Permitted Addendum: 02/12/2023 07:05 STAFF ATTESTATION: The patient's history, exam findings, diagnostics and a summary of s d2 any interventions or procedures was reviewed in detail with the BENNETT. I personally interviewed and examined the patient, and I have reviewed and agree with the HPI and exam. My personal exam shows a nontoxic appearing female resting comfortably in no acute distress. However, she does appear uncomfortable. Vital signs are stable at time of my exam. I confirm the diagnosis as documented by the BENNETT. I have reviewed and agree with the care plan articulated in the disposition section. Sofia Baer MD. Signatures: Dispatcher [employer] EDAbrahan Phelan RN RN ll1 Ann Cameron RN RN kd3 Sofia Baer MD MD sd2 Kenyatta Pascal PA-C PA-C sb4 Corrections: (The following items were deleted from the chart) 02/10 17:08 17:07 Allergies: No Known Allergies; ll1 ll1 17:43 17:41 42-year-old female no past medical history presents with complaints of sb4 generalized weakness, right-sided facial pain, sore throat, and weakness.. sb4
--- NOTE | 2023-02-10 19:13 | ER ---
Nurse's Notes [facility] Name: Elidia Sandoval Age: 42 yrs Sex: Female : 1980 Arrival Date: 02/10/2023 Time: 16:36 Bed IW1 Private MD: Diagnosis: Acute pansinusitis Presentation: 02/10 17:08 Chief complaint: Patient states: Been to ER ([facility]) and MD for CABRERA, cough, eyes ll1 watery, fever, fatigue weak. Facial pain began today, R sided for 1 week. No N/V for the past 3 days. Coronavirus screen: Vaccine status: Patient reports receiving the 2nd dose of the covid vaccine. Client denies travel out of the [place] in the last 14 days. congestion, fatigue, fever, headache, muscle pain, Client presents with at least one sign or symptom that may indicate coronavirus-19. Standard/surgical mask placed on the client. Ebola Screen: Patient denies travel to an Ebola-affected area in the 21 days before illness onset. Initial Sepsis Screen: Does the patient meet any 2 criteria? No. Patient's initial sepsis screen is negative. Does the patient have a suspected source of infection? Yes: Productive cough/pneumonia. Risk Assessment: Do you want to hurt yourself or someone else? Patient reports no desire to harm self or others. Onset of symptoms was February 03, 2023. 17:08 Method Of Arrival: Ambulatory 1 17:08 Acuity: FAITH 3 ll1 Triage Assessment: 17:12 General: Appears uncomfortable, ill, Behavior is calm, cooperative, appropriate for 1 age. Pain: Complains of pain in head Pain currently is 10 out of 10 on a pain scale. Quality of pain is described as aching. Neuro: Reports headache numbness weakness. Respiratory: Reports cough that is. 19:20 Headache History: Denies prior headaches. Pain: Pain began gradually, Also complains of kd3 no other associated symptoms. Historical: - Allergies: 17:07 Melon (Cucumis peralta); ll1 - Home Meds: 19:21 control in L ar [Active]; kd3 - PMHx: 17:07 None; ll1 - PSHx: 17:07 None; ll1 - Immunization history:: Adult Immunizations up to date, Client reports receiving the 2nd dose of the Covid vaccine. - Social history:: Smoking status: Patient denies any tobacco usage or history of. Screenin:20 [facility] ED Fall Risk Assessment (Adult) History of falling in the last 3 months, kd3 including since admission No falls in past 3 months (0 pts) Confusion or Disorientation No (0 pts) Intoxicated or Sedated No (0 pts) Impaired Gait No (0 pts) Mobility Assist Device Used No (0 pt) Altered Elimination No (0 pt) Score/Fall Risk Level 0 - 2 = Low Risk Maintained a safe environment. Abuse screen: Denies threats or abuse. Denies injuries from another. Nutritional screening: No deficits noted. Tuberculosis screening: No symptoms or risk factors identified. Assessment: 17:14 Reassessment: No changes from previously documented assessment. Montse Pascal in triage ll1 evaluating. Vital Signs: 17:08 BP 131 / 82; Pulse 94; Resp 18; Temp 98.8; Pulse Ox 100% ; Weight 94.35 kg; Height 5 ll1 ft. 7 in. ; Pain 10/10; 19:12 BP 129 / 67; Pulse 74; Pulse Ox 100% ; ah1 17:08 Body Mass Index 32.58 (94.35 kg, 170.18 cm) ll1 17:08 Pain Scale: Adult ll1 Giovanna Coma Score: 19:12 Eye Response: spontaneous(4). Motor Response: obeys commands(6). Verbal Response: sb4 oriented(5). Total: 15. ED Course: 16:38 Patient arrived in ED. im 16:38 Arm band placed on. ll1 16:41 [facility]yatta Pascal [facility] sb4 16:41 Sofia Baer MD is Attending Physician. sb4 17:11 Triage completed. ll1 18:07 Inserted saline lock: 20 gauge in left antecubital area, using aseptic technique. Blood em1 collected. 18:17 Head Brain Wo Cont CT In Process Unspecified. EDMS 19:12 Valerie Martell MD is Referral Physician. sb4 19:20 No provider procedures requiring assistance completed. IV discontinued, intact, kd3 bleeding controlled, No redness/swelling at site. Pressure dressing applied. 19:21 Patient has correct armband on for positive identification. kd3 Administered Medications: No medications were administered Medication: 19:21 VIS not applicable for this client. kd3 Outcome: 19:12 Discharge ordered by MD. sb4 19:20 Discharged to home ambulatory. kd3 19:20 Condition: stable 19:20 Discharge instructions given to patient, Instructed on discharge instructions, follow up and referral plans. Demonstrated understanding of instructions, follow-up care, medications, Prescriptions given X 2. 19:21 Patient left the ED. kd3 Signatures: Dispatcher [employer] Rafi Cee em1 Abrahan Rojas RN RN ll1 Ann Cameron RN RN kd3 Kenyatta Pascal, PA-C PA-C [id number] Thad Perez 1 Jaimie German Corrections: (The following items were deleted from the chart) 17:08 17:07 Allergies: No Known Allergies; ll1 ll1 17:12 17:08 Chief complaint: Patient states: Been to ER ([facility]) and MD for CABRERA, cough, ll1 eyes watery, fever, fatigue weak. Facial pain began today, R sided for 1 week. ll1
[2023-02-10 20:04] VITALS: BP 131/82; TEMP 98.8; O2SAT 100
== END 2023-02-10 19:21 | disposition home or self-care (01) ==
LOC: ER 16:36
DX: J01.40 Acute pansinusitis, unspecified (principal); Z20.822 Contact with and (suspected) exposure to COVID-19; Z91.018 Allergy to other foods
CPT/HCPCS: 36415; 70450; 80053; 83605; 83735; 84484; 85025; 86308; 87635; 87804; 99284